=== PATIENT | female | born 1990 | race Caucasian/White ===

== ENCOUNTER 2021-11-28 02:41 | Emergency (ER) | payer OTHER, SELFPAY ==
--- NOTE | 2021-11-28 | ECG_ITS ---
Test Reason : cp Blood Pressure : / mmHG Vent. Rate : 097 BPM Atrial Rate : 097 BPM P-R Int : 136 ms QRS Dur : 082 ms QT Int : 338 ms P-R-T Axes : 040 038 057 degrees QTc Int : 429 ms Normal sinus rhythm Normal ECG When compared with ECG of 13-JUL-2017 10:00, No significant change was found Referred By: Generic ED Physician Electronically Signed By:CHRISTOPHER MONROE MD
--- NOTE | ~2021-11-28 | XR_ITS ---
EXAMINATION: XR CHEST CLINICAL INFORMATION: Chest pain. Left shoulder pain COMPARISON: 07/13/2017 TECHNIQUE: Frontal view of the chest was obtained. FINDINGS: Normal symmetric lung volumes. No parenchymal consolidation. No pleural effusion. No pneumothorax. Cardiomediastinal silhouette and pulmonary vascularity are within normal limits. No acute osseous abnormalities. XR/XR chest 1V IMPRESSION: No acute findings
[2021-11-28 02:53] VITALS: BP 121/69; PULSE 95; RESP 20; TEMP 36.7; O2SAT 98; BMI 29.5
[2021-11-28 03:06] LABS: MANUAL DIFF FLAG NO
[2021-11-28 03:10] LABS: Basophils Absolute Auto 0.1 X10*3/uL (0.0-0.2); Basophils Percent Auto 0.4 % (0-2); Eosinophils Absolute Auto 0.2 X10*3/uL (0.0-0.4); Eosinophils Percent Auto 1.9 % (0-4); Hematocrit 38.8 % (37.0-47.0); Imm Gran Abs Auto 0.03 X10*3/uL (0.00-0.03); Imm Gran Pct Auto 0.2 % (0.0-0.4); Lymphocytes Absolute Auto 2.1 X10*3/uL (1.2-4.9); Lymphocytes Percent Auto 17.4 % (20-40); Mean Corpuscular HGB Conc 33.5 g/dl (31.0-35.0); Mean Corpuscular Hemoglobin 28.5 pg (27.0-33.0); Mean Corpuscular Volume 85.1 fL (80.0-98.0); Mean Platelet Volume 9.5 fL (9.4-12.3); Monocytes Absolute Auto 0.9 X10*3/uL (0.1-1.2); Monocytes Percent Auto 7.4 % (2-11); Neutrophils Percent Auto 72.7 % (45-73); Platelet Count 311 X10*3/uL (160-400); Red Blood Count 4.56 X10*6/uL (4.20-5.50); Red Cell Distribution Width 12.8 % (11.0-16.0); White Blood Count 12.3 X10*3/uL (4.8-10.8)
--- NOTE | 2021-11-28 03:16 | ED.CHESTPAIN ---
HPI - Chest Pain General Chief Complaint: Chest Pain Stated Complaint: chest pain, L arm pain Time Seen by Provider: 11/28/21 03:12 Source: patient Mode of arrival: ambulatory Limitations: no limitations History of Present Illness HPI narrative: Patient comes to the emergency room complaining of 7 hours of left-sided chest pain radiating towards the left arm. Patient states that she was sleeping and she started feeling that her left shoulder was hurting. Patient denies any injuries. At this time, patient states that the chest pain is nearly resolved. No shortness of breath. Patient did not take any medication prior to arrival Related Data Allergies Allergy/AdvReac Type Severity Reaction Status Date / Time No Known Allergies Allergy Unverified 02/26/20 15:53 [No Known Allergies*] Review of Systems Review of Systems: Constitutional : No Weight loss, No Fever, No Chills, No Night Sweats, No Fatigue, No Malaise ENT/Mouth : No Hearing loss, No Ear Pain, No Nasal Congestion, No Sinus Pain, No Hoarseness, No sore throat, No Rhinorrhea, No Swallowing Difficulty Eyes: No Eye Pain, No Swelling, No Redness, No Foreign Body, No Discharge, No Vision Changes Cardiovascular : Complaining of chest pain for 7 hours radiating towards the right shoulder, now self-resolving. No SOB, No Dyspnea on Exertion, No Orthopnea, No Edema, No Palpitations Respiratory : No Cough, No Sputum, No Wheezing, No Smoke Exposure, No Dyspnea Gastrointestinal : No Nausea, No Vomiting, No Diarrhea, No Constipation, No abdominal Pain, No Hematochezia, No Melena Genitourinary : no irregular bleeding, No Dysuria, No Urinary Frequency, No Hematuria, No Urinary Incontinence, No Urgency, No Flank Pain, No Urinary Flow Changes, No Hesitancy Musculoskeletal : No joint pain, No Myalgias, No Joint Swelling Skin : No Skin Lesions, No rash Neuro : No Weakness, No Numbness, No Paresthesias, No Loss of Consciousness, No Dizziness, No Headache Psych : No Anxiety/Panic, No Depression, No SI/HI/AH/VH, No Social Issues, Heme/Lymph: No Bruising, No Bleeding,No Lymphadenopathy Endocrine : No Polyuria, No Polydipsia, No Temperature Intolerance [facility] Social History Social History Alcohol intake: never Patient Tobacco Use Status: Never used Tobacco Use of substances other than those prescribed or required for medical reasons: No Advance Directives: No Advance Directives Information Provided: Yes Patient : No Physical Exam Vital Signs: Vital Signs: Last Vital Signs Temp 98.1 F 11/28/21 02:53 Pulse 95 11/28/21 02:53 Resp 20 11/28/21 02:53 BP 121/69 11/28/21 02:53 Pulse Ox 98 11/28/21 02:53 O2 Del Method 11/28/21 02:53 BMI result Body Mass Index 29.5 Const: Other: Appearance: Alert. Oriented X3. No acute distress. Eyes: Pupils equal, round and reactive to light. ENT: Pharynx normal. Neck: Normal inspection. Neck supple. No lymph nodes noted. No crepitus CVS: Normal heart rate and rhythm. Pulses normal. Normal S1 and S2, reproducible chest pain to palpation in the substernal area Respiratory: No respiratory distress. Breath sounds normal. No Wheezing. No rales Abdomen: Soft and nontender. No rigidity. No distention. Skin: Skin warm and dry. Normal skin color. Normal skin turgor. Extremities: No lower extremity edema. No Lacerations. No Rash Neuro: Oriented X 3. No motor deficit. No sensory deficit. Moving all extremities. No slurred speech. CN 2 through 12 grossly intact Psych: calm, cooperative, normal affect Course Course Course Narrative: Patient's physical exam is normal. EKG and troponin pending Patient's source of pain is likely musculoskeletal. MDM - Chest Pain Lab Data Result diagrams: 11/28/21 03:00 11/28/21 03:00 Labs: Lab Results 11/28/21 11/28/21 11/28/21 Range/Units 03:00 03:00 03:00 WBC 12.3 H (4.8-10.8) X10*3/uL RBC 4.56 (4.20-5.50) X10*6/uL Hgb 13.0 (12.0-16.0) g/dl Hct 38.8 (37.0-47.0) % MCV 85.1 (80.0-98.0) fL MCH 28.5 (27.0-33.0) pg MCHC 33.5 (31.0-35.0) g/dl RDW 12.8 (11.0-16.0) % Plt Count 311 (160-400) X10*3/uL MPV 9.5 (9.4-12.3) fL Immature Gran % (Auto) 0.2 (0.0-0.4) % Neut % (Auto) 72.7 (45-73) % Lymph % (Auto) 17.4 L (20-40) % [place] % (Auto) 7.4 (2-11) % Eos % (Auto) 1.9 (0-4) % Baso % (Auto) 0.4 (0-2) % Lymph # (Auto) 2.1 (1.2-4.9) X10*3/uL [place] # (Auto) 0.9 (0.1-1.2) X10*3/uL Eos # (Auto) 0.2 (0.0-0.4) X10*3/uL Baso # (Auto) 0.1 (0.0-0.2) X10*3/uL Abs Immat Gran (auto) 0.03 (0.00-0.03) X10*3/uL Absolute Neuts (auto) 9.0 H (2.0-8.3) x10*3/uL Absolute Nucleated RBC 0.000 (0.0-0.012) X10*3/uL Nucleated RBC % (auto) 0.0 (0.0-0.2) /100WBC Sodium 135 (135-145) mmol/L Potassium 4.4 (3.3-5.1) mmol/L Chloride 101 (96-108) mmol/L Carbon Dioxide 25 (22-29) mmol/L Anion Gap 13 (12-20) BUN 15 (9-16) mg/dL Creatinine 0.88 (0.5-1.4) mg/dL Estim Creat Clear Calc 81.9 Estimated GFR > 60 Random Glucose 102 (60-115) mg/dL Calcium 10.4 H (8.4-10.2) mg/dL Total Bilirubin 0.4 (0.0-1.0) mg/dL AST 10 (5-31) U/L ALT 15 (0-31) U/L Alkaline Phosphatase 92 (39-117) U/L Troponin I High Sens < 3.5 (<3.5-17.0) ng/L Total Protein 7.1 (6.5-8.0) g/dL Albumin 4.1 (3.5-5.0) g/dL Imaging Data Chest x-ray: Radiologist's impression: Normal symmetric lung volumes. No parenchymal consolidation. No pleural effusion. No pneumothorax.? Cardiomediastinal silhouette and pulmonary vascularity are within normal limits. No acute osseous abnormalities. XR/XR chest 1V IMPRESSION: No acute findings ? ECG Data ECG #1: Attestation: I personally reviewed and interpreted this ECG as follows: (Sinus rhythm, heart rate 97, no ST segment depression or elevation, no T-wave inversion, QTC 429) Discharge Plan Discharge Clinical Impression: Atypical chest pain Patient Disposition: Home, Self-Care Instructions: Chest Pain (ED) Additional Instructions: Please follow-up with your primary care physician tomorrow. If you have any worsening or new symptoms, please return to the emergency room or call 911
[2021-11-28] MEDS: Aspirin Enteric Coated 325 MG TABLET.DR PO (03:21)
[2021-11-28 03:25] LABS: Alanine Aminotransferase 15 U/L (0-31); Albumin Level 4.1 g/dL (3.5-5.0); Alkaline Phosphatase 92 U/L (39-117); Anion Gap 13 (12-20); Aspartate Amino Transferase 10 U/L (5-31); Bilirubin Total 0.4 mg/dL (0.0-1.0); Blood Urea Nitrogen 15 mg/dL (9-16); Calcium 10.4 mg/dL (8.4-10.2); Carbon Dioxide 25 mmol/L (22-29); Chloride 101 mmol/L (96-108); Creatinine Clr Calc Pharmacy 81.9; Estimated Glomerular Filt Rate > 60; Glucose Random 102 mg/dL (60-115); Potassium 4.4 mmol/L (3.3-5.1); Sodium 135 mmol/L (135-145); Total Protein 7.1 g/dL (6.5-8.0); Troponin-I High Sensitivity < 3.5 ng/L (<3.5-17.0)
--- NOTE | 2021-11-28 04:02 | PC.NURSE ---
pt states her shoulder pain has improved to a 6/10 and her chest wall pain is only on deep breathing. skin pink warm and dry, pt resting comfortably.
[2021-11-28 04:12] VITALS: BP 112/61; PULSE 90; RESP 18; O2SAT 97
== END 2021-11-28 04:15 | disposition home or self-care (01) ==
PROVIDERS: Emergency Provider Emergency Medicine
DX: R07.89 Other chest pain (principal); M79.602 Pain in left arm; Z79.899 Other long term (current) drug therapy
CPT/HCPCS: 36415; 71045; 80053; 84484; 85025; 93005; 99284; 99285

== ENCOUNTER 2025-03-09 13:47 | Observation (INO) | payer SELFPAY ==
[2025-03-09 13:55] VITALS: BP 130/80; PULSE 110; O2SAT 99
[2025-03-09 14:01] VITALS: BP 145/73; PULSE 113; RESP 18; TEMP 36.9; O2SAT 98; BMI 25.6
[2025-03-09 14:08] VITALS: BP 145/73; PULSE 113; RESP 18; TEMP 36.9; O2SAT 98
--- NOTE | 2025-03-09 14:08 | ECG_ITS ---
Test Reason : techycardia Blood Pressure : */* mmHG Vent. Rate : 115 BPM Atrial Rate : 115 BPM P-R Int : 144 ms QRS Dur : 128 ms QT Int : 388 ms P-R-T Axes : * 59 -74 degrees QTcB Int : 536 ms Artifact in tracing Sinus tachycardia Due to artifact cannot assess When compared with ECG of 28-Nov-2021 02:42, due to artifact, cannot compare Referred By: Generic ED Physician Electronically Signed By: EDITH GONZALEZ
--- NOTE | 2025-03-09 14:11 | PC.NURSE ---
34F presents to ED with recent use of excess adderall and thc. Pt sts treating self psychosis, took 1400mg adderall in last 3 days and 400mg THC edibles each day for last 3 days. Pt sts she's abused her meds in the past and wants help. Pt denies any pain or discomfort, does have some nausea. Pt tachy upon arrival, ecg completed. RR even and unlabored, denies CP or SOB. Pt is anxious, A+OX4. Pt ambulates without difficulties.
--- NOTE | 2025-03-09 14:20 | PC.NURSE ---
pt denies SI/HI, ticket dispenser changer for safety, belongings being checked by security and secured.
[2025-03-09] MEDS: Lactated Ringers 1,000 ML 999 ML IV (15:05)
[2025-03-09] MEDS: diazePAM 10 MG/2 ML CARTRIDGE 5 MG IVPUSH ×2 (15:05→20:35)
--- NOTE | 2025-03-09 15:15 | PC.NURSE ---
pt anxious, just medicated. Family at bedside along with sitter.
[2025-03-09 15:30] LABS: MANUAL DIFF FLAG NO
[2025-03-09 15:30] LABS: Appearance Urine Cloudy; Glucose Urine UA Negative (Negative); PH 5.0 (5.0-9.0); Specific Gravity - Urine 1.025 (1.005-1.025); UMIC TRIGGER UACC YES
[2025-03-09 15:39] LABS: Hematocrit 34.3 % (37.0-47.0); Hemoglobin 12.0 g/dl (12.0-16.0); Imm Gran Abs Auto 0.04 X10*3/uL (0.00-0.03); Imm Gran Pct Auto 0.3 % (0.0-0.4); Lymphocytes Absolute Auto 2.9 X10*3/uL (1.2-4.9); Mean Corpuscular HGB Conc 35.0 g/dl (31.0-35.0); Mean Corpuscular Hemoglobin 29.2 pg (27.0-33.0); Mean Corpuscular Volume 83.5 fL (80.0-98.0); NRBC Abs Auto 0.000 X10*3/uL (0.0-0.012); NRBC Pct Auto 0.0 /100WBC (0.0-0.2); Platelet Count 342 X10*3/uL (160-400); Red Blood Count 4.11 X10*6/uL (4.20-5.50); White Blood Count 13.2 X10*3/uL (4.8-10.8)
[2025-03-09 15:42] LABS: Cannabinoid Screen Urine POSITIVE (Not Detect)
[2025-03-09 15:55] LABS: Alanine Aminotransferase 15 U/L (0-31); Albumin Level 4.4 g/dL (3.5-5.0); Alkaline Phosphatase 53 U/L (39-117); Anion Gap 11 (12-20); Aspartate Amino Transferase 24 U/L (5-31); Blood Urea Nitrogen 13 mg/dL (9-16); Calcium 9.7 mg/dL (8.4-10.2); Carbon Dioxide 22 mmol/L (22-29); Chloride 113 mmol/L (96-108); Creatinine Clr Calc Pharmacy 87.2; Estimated Glomerular Filt Rate > 60; Magnesium 1.7 mg/dL (1.6-2.6); Potassium 3.9 mmol/L (3.3-5.1); Sodium 142 mmol/L (135-145); Total Protein 6.6 g/dL (6.5-8.0)
--- NOTE | 2025-03-09 15:57 | ED.PSYCH ---
HPI - Psych General Chief Complaint: Psychiatric Symptoms Stated Complaint: Too much med, ativan, cbd Time Seen by Provider: 03/09/25 14:18 Source: patient, family and old records reviewed Mode of arrival: ambulatory Limitations: no limitations History of Present Illness ED Provider: ESTELLA HPI Narrative: 34 yo female with PMH of anxiety/depression who also has hx of stimulant abuse including trying meth in the past and using crack cocaine back in 2021. She now has a cycle of abusing her adderall 10mg and 20mg she gets a 90 day supply and uses it in one week. She then states she sleeps for 3 weeks after. She has no SI/HI but states I am done I need help. She is 6 days in of her typical one week binge and took about 500mg today. She has no CP/SOB. She states she likes to smoke about 400mg of THC a day as well to not be here. She has not gone to detox before. She is with her mom and boyfriend. complaint: anxiety Onset (ago): year(s) Duration: intermittent History of same: Yes Relieving factors: none Exacerbating factors: drug use Context: recent drug abuse and significant life stressor Associated psychiatric symptoms: depression and racing thoughts Associated symptoms: nausea and insomnia Treatments prior to arrival: none Related Data Allergies Allergy/AdvReac Type Severity Reaction Status Date / Time No Known Allergies (No Known Allergy Verified 03/09/25 14:07 Allergies*) Review of Systems Review of Systems: Constitutional : No Fever, No Chills, No Fatigue ENT/Mouth : No sore throat, No Rhinorrhea Eyes: No Eye Pain, No Swelling, No Redness Cardiovascular : No Chest Pain, No SOB Respiratory : No Cough, No Sputum Gastrointestinal : No Nausea, No Vomiting, No Diarrhea, No abdominal Pain Skin : No Skin Lesions, No rash Neuro : No Weakness, No Numbness, No Dizziness, no Headache Psych: pos anxiety, pos depression, no SI/HI. All other systems reviewed and are negative PMFSH Past Medical History Attestation statement: The following information was validated with the patient. Source: old records reviewed Medical History Stimulant abuse Social History Social History Alcohol intake: current Patient Tobacco Use Status: Never used Tobacco Smoked in Last 30 Days: No Use of substances other than those prescribed or required for medical reasons: No Advance Directives: No Advance Directives Information Provided: Yes Do you have a plan to hurt others: No Plan Patient : No Physical Exam Vital Signs: Vital Signs: Last Vital Signs Temp 98.4 F 03/09/25 14:08 Pulse 110 H 03/09/25 16:15 Resp 20 03/09/25 16:15 BP 128/80 03/09/25 16:15 Pulse Ox 98 03/09/25 16:15 O2 Del Method Room Air 03/09/25 16:15 BMI result Body Mass Index 25.6 Appearance: Alert. Oriented X3. No acute distress. Eyes: Pupils equal, round and reactive to light. 5mm ENT: Pharynx normal. Neck: Normal inspection. Neck supple. CVS: tachycardic heart rate and rhythm. Pulses normal. Respiratory: No respiratory distress. Breath sounds normal. Abdomen: Soft and nontender. Skin: Skin warm and dry. Normal skin color. Extremities: No lower extremity edema. Neuro: Oriented X 3. No motor deficit. No sensory deficit. CN2-12 intact no hyperreflexia or tremors, no clonus Medications Administered Discontinued Medications Generic Name Dose Route Start Last Admin Trade Name Freq PRN Reason Stop Dose Admin Diazepam 5 mg 03/09/25 14:54 03/09/25 15:05 Diazepam 10 Mg/2 Ml Cartridge IVPUSH 03/09/25 14:55 5 mg STAT STA Administration Lactated Ringer's 1,000 mls @ 999 mls/hr 03/09/25 14:54 03/09/25 15:05 Lr IV 03/09/25 15:54 999 mls/hr .Q1H1M ONE Administration Medical Decision Making Medical Decision Making MDM Narrative: 34 yo female with PMH of anxiety/depression who also has hx of longstanding stimulant abuse she is here anxious, nervous with HTN and tachycardia - she took 500mg IR today. At this time will obtain labs, EKG, place on tele give IVF and start on PRN benzos. She has no tremors, psychosis, clonus. Anticipate admission after discussion with poison control. Differential Diagnosis Differential Diagnoses: The differential diagnosis associated with the presentation includes ingestion, stimulant abuse Admission/Observation Consideration of admission/observation: Escalation of care including admission/observation considered per tox monitor on tele and repeat EKGs for 24 hours bicarb if QRS widens Consult Healthcare Provider Management of the patient was discussed with: Hospitalist (will admit) and Principal Trainer poison control: repeating ECG to check QRS after fluids, repeating ECG q2h and keeping overnight for observation. They recommend bicarb if QRS is still wide. Lab Data [facility] Lab Attestation statement: I reviewed the patient's lab results. 03/09/25 15:27 03/09/25 15:27 Labs: Lab Results 03/09/25 03/09/25 Range/Units 15:12 15:27 WBC 13.2 H (4.8-10.8) X10*3/uL RBC 4.11 L (4.20-5.50) X10*6/uL Hgb 12.0 (12.0-16.0) g/dl Hct 34.3 L (37.0-47.0) % MCV 83.5 (80.0-98.0) fL MCH 29.2 (27.0-33.0) pg MCHC 35.0 (31.0-35.0) g/dl RDW 12.7 (11.0-16.0) % Plt Count 342 (160-400) X10*3/uL MPV 9.9 (9.4-12.3) fL Immature Gran % (Auto) 0.3 (0.0-0.4) % Neut % (Auto) 68.3 (45-73) % Lymph % (Auto) 22.1 (20-40) % [place] % (Auto) 7.7 (2-11) % Eos % (Auto) 1.2 (0-4) % Baso % (Auto) 0.4 (0-2) % Lymph # (Auto) 2.9 (1.2-4.9) X10*3/uL [place] # (Auto) 1.0 (0.1-1.2) X10*3/uL Eos # (Auto) 0.2 (0.0-0.4) X10*3/uL Baso # (Auto) 0.1 (0.0-0.2) X10*3/uL Abs Immat Gran (auto) 0.04 H (0.00-0.03) X10*3/uL Absolute Neuts (auto) 9.0 H (2.0-8.3) x10*3/uL Absolute Nucleated RBC 0.000 (0.0-0.012) X10*3/uL Nucleated RBC % (auto) 0.0 (0.0-0.2) /100WBC Sodium 142 (135-145) mmol/L Potassium 3.9 (3.3-5.1) mmol/L Chloride 113 H (96-108) mmol/L Carbon Dioxide 22 (22-29) mmol/L Anion Gap 11 L (12-20) BUN 13 (9-16) mg/dL Creatinine 0.75 (0.5-1.4) mg/dL Estim Creat Clear Calc 87.2 Estimated GFR > 60 Random Glucose 96 (60-115) mg/dL Calcium 9.7 D (8.4-10.2) mg/dL Magnesium 1.7 (1.6-2.6) mg/dL Total Bilirubin 0.4 (0.0-1.0) mg/dL Direct Bilirubin 0.2 (0.0-0.5) mg/dL AST 24 (5-31) U/L ALT 15 (0-31) U/L Alkaline Phosphatase 53 (39-117) U/L Total Creatine Kinase 237 H (26-140) U/L Total Protein 6.6 (6.5-8.0) g/dL Albumin 4.4 (3.5-5.0) g/dL TSH 0.85 (0.32-4.0) uIU/mL Beta HCG, Quant < 2 mIU/mL Urine Color Dark Yellow Urine Appearance Cloudy Urine pH 5.0 (5.0-9.0) Ur Specific [place] 1.025 (1.005-1.025) Urine Protein Trace (Neg-Trace) mg/dL Urine Glucose (UA) Negative (Negative) mg/dL Urine Ketones 15 (Negative) mg/dL Urine Blood Large (3+) H (Negative) Urine Nitrite Negative (Negative) Ur Leukocyte Esterase Trace H (Negative) Urine RBC 3-5 H (0-2) /HPF Urine WBC 0-5 (0-5) /HPF Ur Squamous Epith Cells 6-10 (0-2) /HPF Urine Bacteria 3+ (None Seen) Hyaline Casts 0-2 (0-2) /LPF Urine Opiates Screen Not Detected (Not Detect) Ur Buprenorphine Scrn Not Detected (Not Detect) ng/mL Ur Oxycodone Screen Not Detected (Not Detect) ng/mL Urine Methadone Screen Not Detected (Not Detect) ng/mL Urine Fentanyl Screen Not Detected (Not Detect) Ur Barbiturates Screen Not Detected (Not Detect) Ur Phencyclidine Scrn Not Detected (Not Detect) Ur Amphetamines Screen POSITIVE H (Not Detect) U Benzodiazepines Scrn Not Detected (Not Detect) Urine Cocaine Screen Not Detected (Not Detect) U Marijuana (THC) Screen POSITIVE H (Not Detect) Ethyl Alcohol < 10 mg/dL Independent Interpretation I performed an independent interpretation of an: EKG Interpretation: Rate: 115 Rhythm: sinus tachycardia [place]: normal Normal P waves. Normal GUANACO. Normal QRS complex. ST T wave : artifact but no CALDERON qTC: 492 prior studies: no prior The study has been interpreted contemporaneously by me. EKG #2 Rate: 102 Rhythm: sinus tach [place]: normal Normal P waves. Normal [place]. Normal QRS complex. ST T wave : inverted t wave V1, no CALDERON qTC: 474 prior studies: no change The study has been interpreted contemporaneously by me. . Independent Historian Clinical information obtained from an independent historian. History obtained from or confirmed by: Spouse and Parent External Record Review External record reviewed: Outpatient record Discharge Plan Discharge Clinical Impression: Stimulant abuse Patient Disposition: Admitted As Inpatient Interventions: Mitchell-Suicide Risk Severity Scale Last Done: 03/09/25 14:08 Print Language: German
--- NOTE | 2025-03-09 15:58 | PC.NURSE ---
Spoke to poison control, they recommend repeating ECG to check QRS after fluids, repeating ECG q2h and keeping overnight for observation. They recommend bicarb if QRS is still wide. notified.
--- NOTE | 2025-03-09 16:05 | ECG_ITS ---
Test Reason : medical clearance Blood Pressure : */* mmHG Vent. Rate : 102 BPM Atrial Rate : 102 BPM P-R Int : 140 ms QRS Dur : 76 ms QT Int : 364 ms P-R-T Axes : 62 52 59 degrees QTcB Int : 474 ms Sinus tachycardia Otherwise normal ECG When compared with ECG of 09-Mar-2025 14:08, No significant changes seen Referred By: Dionna Robledo Electronically Signed By: EDITH GONZALEZ
[2025-03-09 16:15] VITALS: BP 128/80; PULSE 110; RESP 20; O2SAT 98
--- OUTSIDE RECORDS SUMMARY | 2025-03-09 16:32 | XMS_ITS | Clinical Summary ---
Author Organization Formerly [facility] Address [address] [employer] [employer] [address] [address] Phone Care Team Providers Care Cellophaner Name Role Phone Estella Andrea RNprocessor grain Provider [phone] Allergies No known active allergies Active Problems Problem Noted Date Diagnosed Date ADD (attention deficit disorder) 03/07/2020 Anxiety 03/07/2020 Gastroesophageal reflux disease 03/07/2020 Tobacco use 03/07/2020 Immunizations Immunization Administration Dates Next Due Dtap, 5 Pertussis Antigens 01/26/1994,,01/28/1990,1989,07/03/1989 HPV,quadrivalent 02/16/2012,10/12/2011, 2 Hepatitis B 05/14/2000,03/17/1998,02/12/1998 Hib,PRP-T 09/24/1990 Influenza Quadrivalent w/ Preservative IM 03/04/2020,04/09/2018,07/25/2017 MMR 05/14/2000,09/24/1990 Polio - OPV 01/26/1994, 1,08/27/1989,1989 Td (adult),2 Lf Tetanus Toxo id, PF, Adsorbed 05/14/2000 Family History Medical History Relation Comments Alcohol abuse Father Alcohol abuse Mother Thyroid nodules Mother Leukemia Paternal Grandfather Relation Status Comments Father Mother Paternal Grandfather Social History Tobacco Use Types Packs/Day Years Used Date Smoking Tobacco: Every Day Cigarettes Smokeless Tobacco: Never Alcohol Use Standard Drinks/Week Comments Not Currently 0 (1 standard drink = 0.6 oz pur e alcohol) Education Answer Date Recorded Are you interested in more education? Not on herbert e 10/06/2022 Are you concerned about learning? Not on file 10/06/2022 No 10/06/2022 No 10/06/2022 Digital Access Answer Date Recorded No 11/04/2022 No 11/04/2022 No 11/04/2022 Reliable internet access at home? Not on file 11/04/2022 Device with a working camera? Not on file Comments Unknown Sex and Gender Information Value Date Recorded Sex Assigned at Not on file Legal Sex Female 1:32 PM EDT Gender Identity Not on file Sexual Orientation Not on file Last Filed Vital Signs Vital Sign Reading Time Taken Comments Blood Pressure 116/70 03/04/2020 3:10 PM EDT Pulse 108 03/04/2020 3:10 PM EDT Temperature 35.2 C (95.3 F) 03/04/2020 3:10 PM EDT Respiratory Rate - - Oxygen Saturation 99% 03/04/2020 3:10 PM EDT Inhaled Oxygen Concentration - - Weight 83 kg (183 lb 0.2 oz) 03/04/2020 3:10 PM EDT Height 154.9 cm (5' 1 ) 03/04/2020 3:10 PM EDT Body Mass Index 34.58 03/04/2020 3:10 PM EDT Plan of Treatment Health Maintenance Due Date Last Done Comments SMOKING Hx and SMOKELESS TOBACCO SCREENING 2001 HEPATITIS C SCREENING 2006 HIV ONE-TIME SCREENING (18-6 5 YEARS) 2006 PNEUMOCOCCAL VACCINES (0-49 years) (1 of 2 - PCV) 11/25/2007 PAP SMEAR 2009 Adult Td,Tdap Booster 05/14/2010 05/14/2000 DEPRESSION SCREENING 03/04/2021 03/04/2020, 03/04/2020 INFLUENZA VACCINE (#1) 2025 , 04/09/2018, 07/25/2017 COVID-19 VACCINE (2 - 2024-2 6 season) 2025 09/28/2020 HIB VACCINES Completed 09/24/1990 HEPATITIS A VACCINES Aged Out No long er eligible based on patient's age to complete this topic MENINGOCOCCAL VACCINES (ACWY) Aged Out No longer eligible based on patient's age to complete this topic MENINGOCOCCAL VACCINES (B) Aged Out N o longer eligible based on patient's age to complete this topic Medical Devices Not on file Insurance WELLSENSE NON NSPG PCP SILVER CLARITY CONNECTORCARE WELLSENSE NON NSPG PCP SILVER CLARITY CONNECTORCARE WELLSENSE NON NSPG PCP SILVER CLARITY CONNECTORCARE WELLSENSE NON NSPG PCP SILVER CLARITY CONNECTORCARE WELLSENSE NON NSPG PCP SILVER CLARITY CONNECTORCARE WELLSENSE NON NSPG PCP SILVER CLARITY CONNECTORCARE WELLSENSE NON NSPG PCP SILVER CLARITY CONNECTORCARE WELLSENSE NON NSPG PCP SILVER CLARITY CONNECTORCARE WELLSENSE NON NSPG PCP SILVER CLARITY CONNECTORCARE [place] [phone] Care Teams Cellophaner Relationship Specialty Start Date End Date Estella Andrea RN [address] [place] [id number] [email or web address] PCP - General Internal Medicine 04/12/20 Additional Source Comments The information contained in this document represents components of the legal health record. It is not the complete legal health record.Formerly [facility]
--- OUTSIDE RECORDS SUMMARY | 2025-03-09 16:32 | XMS_ITS | Clinical Summary ---
Author Organization [facility] Address [address] [place] [address] Phone Care Team Providers Care Child Neurologist Name Role Phone Edwige Lao MD Primary Care Provider [phone] Immunizations Immunization Administration Dates Next Due DTaP 5 01/26/1994, 1,01/28/1990,1989,07/03/1989 Hep B, ped/adol 05/14/2000,03/17/1998,02/12/1998 Hib (PRP-T) 09/24/1990 MMR 05/14/2000,09/24/1990 OPV 01/26/1994, 1,08/27/1989,1989 Td (adult) (MBL), 2 Lf tetan us toxoid, PF, adsorbed 05/14/2000 Family History Relation Name Status Comments Father Alive Father: Alive a nd well Mother Alive Mother: Alive a nd well Social History Tobacco Use Types Packs/Day Years Used Date Smoking Tobacco: Never Assessed Comments Unknown Sex and Gender Information Value Date Recorded Sex Assigned at Not on file Legal Sex Female 4:29 PM EDT Gender Identity Not on file Sexual Orientation Not on file Plan of Treatment Health Maintenance Due Date Last Done Comments DTaP,Tdap,and Td Vaccines (6 - Tdap) 05/15/2000 05/14/2000, 01/26/1994, 09/24/1990, Additional history exists Varicella Vaccines (1 of 2 - 13+ 2-dose series) 2001 HPV Vaccines (1 - 3-dose SCDM series) 11/25/2015 Influenza Vaccines (#1) 2025 COVID-19 Vaccine ( season) 2025 HIB Vaccines Completed 09/24/1990 IPV Vaccines Completed 01/26/1994, 09/09, 08/27/1989, Additional history exists Hepatitis B Vaccines Completed 05/14/2000, 03/17/1998, 02/12/1998 MMR Vaccines Completed 05/14/2000, 09/24/1990 Hepatitis A Vaccines Aged Out No long er eligible based on patient's age to complete this topic Men B Vaccine Aged Out No longer elig ible based on patient's age to complete this topic Meningococcal Vaccine Aged Out No rosio lance eligible based on patient's age to complete this topic Pneumococcal Vaccine Aged Out No long er eligible based on patient's age to complete this topic Care Teams Child Neurologist Relationship Specialty Start Date End Date Edwige Lao MD [address] [place] [address] [place] [id number] PCP - General 01/19/17
--- NOTE | 2025-03-09 16:43 | P.HPHOSP_ITS ---
History of Present Illness Date of Service: 03/09/25 Chief Complaint: adderal OD 34F PMH mood disorder, polysubstance abuse including adderal, meth, crack coacaine, presented with adderal overdose. Patient states she has been having trouble coping and has previously abused Adderall in the past. For the past week she has been taking approximately 400 mg daily and on day of presentation took 1200 mg. Currently feeling stressed and anxious and some brain fog. Denies chest pain, shortness breath, fever, chills. EKG with sinus tachycardia of 102, QRS 76, QTC 474. Review of Systems 2 Review of Systems: Yes all other systems are reviewed and are negative [facility] Medical History Stimulant abuse Social History Alcohol intake: current Patient Tobacco Use Status: Never used Tobacco Smoked in Last 30 Days: No Use of substances other than those prescribed or required for medical reasons: No Advance Directives: No Advance Directives Information Provided: Yes Do you have a plan to hurt others: No Plan Patient : No Meds Allergies Allergy/AdvReac Type Severity Reaction Status Date / Time No Known Allergies (No Known Allergy Verified 03/09/25 14:07 Allergies*) Active Medications: Current Medications Acetaminophen (Acetaminophen 325 Mg Tablet) 650 mg PO Q6H PRN PRN Reason: Pain, Mild 1-3,fever,headache Calcium Carbonate (Calcium Carbonate 750 Mg Tab.Chew) 750 mg PO Q4H PRN PRN Reason: Heartburn Enoxaparin Sodium (Enoxaparin Sodium 40 Mg/0.4 Ml Syringe) 40 mg SUBCUT Q24H [facility] Magnesium Hydroxide (Milk Of Magnesia 30 Ml Oral.Susp) 30 ml PO DAILY PRN PRN Reason: Constipation Melatonin (Melatonin 3 Mg Tablet) 6 mg PO BEDTIME PRN PRN Reason: Insomnia Sodium Chloride (0.9 % Sodium Chloride Flush 3 Ml Syringe) 3 ml IVFLUSH QSHIFT JULIO Physical Exam 2 Vital Signs and Narrative: Vital Signs: Last Vital Signs Temp 98.4 F 03/09/25 14:08 Pulse 110 H 03/09/25 16:15 Resp 20 03/09/25 16:15 BP 128/80 03/09/25 16:15 Pulse Ox 98 03/09/25 16:15 O2 Del Method Room Air 03/09/25 16:15 BMI result Body Mass Index 25.6 General: AO X 3, restless appearing Resp: CTA bilateral, no accessory muscles used CVS: S1,S2,tachy GI: soft, non tender, non distended Neuro: motor grossly intact, alert Psych: anxious affect, appropriate insight Results Labs 03/09/25 15:27 03/09/25 15:27 Labs: Laboratory Results - last 24 hr 03/09/25 03/09/25 15:12 15:27 MCV 83.5 MCH 29.2 MCHC 35.0 RDW 12.7 Plt Count 342 MPV 9.9 Immature Gran % (Auto) 0.3 Neut % (Auto) 68.3 Lymph % (Auto) 22.1 [place] % (Auto) 7.7 Eos % (Auto) 1.2 Baso % (Auto) 0.4 Lymph # (Auto) 2.9 [place] # (Auto) 1.0 Eos # (Auto) 0.2 Baso # (Auto) 0.1 Abs Immat Gran (auto) 0.04 H Absolute Neuts (auto) 9.0 H Absolute Nucleated RBC 0.000 Nucleated RBC % (auto) 0.0 Anion Gap 11 L Estim Creat Clear Calc 87.2 Estimated GFR > 60 Random Glucose 96 Calcium 9.7 D Magnesium 1.7 Total Bilirubin 0.4 Direct Bilirubin 0.2 AST 24 ALT 15 Alkaline Phosphatase 53 Total Creatine Kinase 237 H Total Protein 6.6 Albumin 4.4 TSH 0.85 Beta HCG, Quant < 2 Urine Color Dark Yellow Urine Appearance Cloudy Urine pH 5.0 Ur Specific [place] 1.025 Urine Protein Trace Urine Glucose (UA) Negative Urine Ketones 15 Urine Blood Large (3+) H Urine Nitrite Negative Ur Leukocyte Esterase Trace H Urine RBC 3-5 H Urine WBC 0-5 Ur Squamous Epith Cells 6-10 Urine Bacteria 3+ Hyaline Casts 0-2 Urine Opiates Screen Not Detected Ur Buprenorphine Scrn Not Detected Ur Oxycodone Screen Not Detected Urine Methadone Screen Not Detected Urine Fentanyl Screen Not Detected Ur Barbiturates Screen Not Detected Ur Phencyclidine Scrn Not Detected Ur Amphetamines Screen POSITIVE H U Benzodiazepines Scrn Not Detected Urine Cocaine Screen Not Detected U Marijuana (THC) Screen POSITIVE H Ethyl Alcohol < 10 Assessment and Plan (1) Stimulant abuse: Status: Acute Plan 34F PMH mood disorder, polysubstance abuse including adderal, meth, crack coacaine, presented with adderal overdose mood disorder with Adderall intoxication Discussed with poison control, monitor for 24 hours on tele with EKG q.2 hours Once medically cleared will need care team eval DVT prophylaxis with Lovenox Full code Quality Stroke Does the patient have a stroke diagnosis?: No VTE Prior VTE?: No VTE Risk Level:: Medical - moderate - high VTE Device Contraindication: Treatment Not Indicated VTE Drug Contraindication: N/A - Med Ordered
[2025-03-09 18:03] VITALS: BP 120/63; PULSE 114; RESP 21; TEMP 36.8; O2SAT 99
--- NOTE | 2025-03-09 18:23 | PHA.MEDREC ---
Addendum entered by Tk Mak PharmD 03/09/25 18:27: reviewed Original Note: Pharmacy Consult ? Medication Reconciliation Pharmacy has completed the medication reconciliation. patient was able to name all of her medications. Patient had her medications today.
--- NOTE | 2025-03-09 19:26 | PC.NURSE ---
assumed care of pt, mother and 1:1 sitter at bedside. Pt dinner at bedside, tech drawing labs. Pt alert and oriented, respirations even and unlabored.
[2025-03-09 19:49] LABS: Acetaminophen LAB < 3 mcg/mL (<30); Salicylate < 5.0 mg/dL (15-30)
[2025-03-09 20:17] VITALS: BP 111/56; PULSE 64; RESP 20; TEMP 36.7; O2SAT 99
--- NOTE | 2025-03-09 20:39 | PC.NURSE ---
pt reports increased anxiety, pt medicated per MAR. sitter sitting inside the room with pt, lights dimmed curtain closed to attempt to decrease stimuli for pt.
--- NOTE | 2025-03-09 20:43 | PC.NURSE ---
poison control called to get acetaminophen value and current HR. information relayed; Acetaminophen value of >3, HR between 82-90
--- NOTE | 2025-03-09 22:40 | PC.NURSE ---
pt given warm blanket, sitter at bedside.
--- NOTE | 2025-03-10 01:02 | PC.NURSE ---
pt reports increasing anxiety and sweats, feels she is having mild w/d symptoms, admitting provider advised via [place], awaiting new orders
[2025-03-10] MEDS: 0.9 % Sodium Chloride Flush 3 ML SYRINGE IVFLUSH ×3 (01:08→15:54)
--- NOTE | 2025-03-10 01:22 | PC.NURSE ---
per provider request, confirmed with pt that no alcohol or other substances were used recently. Pt denies other substances and states she never drinks alcohol.
[2025-03-10] MEDS: diazePAM 10 MG/2 ML CARTRIDGE 5 MG IVPUSH (01:26)
--- NOTE | 2025-03-10 01:29 | PC.NURSE ---
pt medicated per MAR.
[2025-03-10 06:42] VITALS: BP 113/63; PULSE 96; RESP 20; TEMP 36.8; O2SAT 100
[2025-03-10 07:31] LABS: Hematocrit 35.9 % (37.0-47.0); Hemoglobin 12.3 g/dl (12.0-16.0); Mean Corpuscular HGB Conc 34.3 g/dl (31.0-35.0); Mean Corpuscular Hemoglobin 29.1 pg (27.0-33.0); Mean Corpuscular Volume 85.1 fL (80.0-98.0); NRBC Abs Auto 0.000 X10*3/uL (0.0-0.012); NRBC Pct Auto 0.0 /100WBC (0.0-0.2); Platelet Count 280 X10*3/uL (160-400); Red Blood Count 4.22 X10*6/uL (4.20-5.50); White Blood Count 7.1 X10*3/uL (4.8-10.8)
[2025-03-10 07:50] LABS: Anion Gap 11 (12-20); Blood Urea Nitrogen 11 mg/dL (9-16); Calcium 9.0 mg/dL (8.4-10.2); Carbon Dioxide 23 mmol/L (22-29); Chloride 111 mmol/L (96-108); Creatinine Clr Calc Pharmacy 86.0; Estimated Glomerular Filt Rate > 60; Magnesium 1.8 mg/dL (1.6-2.6); Potassium 3.8 mmol/L (3.3-5.1); Sodium 141 mmol/L (135-145)
--- NOTE | 2025-03-10 07:55 | PC.NURSE ---
patient currently sleeping, rr equal/non labored, library monitor nsr, 1:1 sitter at bedside, fall precautions intact, call elise within reach, plan of care ongoing
--- NOTE | 2025-03-10 08:23 | HO.PM.IMPN ---
Subjective Subjective Date of Service: 03/10/25 Interval History: no copmlaints Physical Exam Exam: Exam: General: AO X 3, no acute distress Resp: CTA bilateral, no accessory muscles used CVS: S1,S2,RRR GI: soft, non tender, non distended Neuro: motor grossly intact, alert Psych: appropriate affect, appropriate insight Vital Signs: Vital Signs: Last Vital Signs Temp 98.3 F 03/10/25 06:42 Pulse 96 03/10/25 06:42 Resp 20 03/10/25 06:42 BP 113/63 03/10/25 06:42 Pulse Ox 100 03/10/25 06:42 O2 Del Method Room Air 03/10/25 06:42 BMI result Body Mass Index 25.6 Objective Data Active Medications Acetaminophen (Acetaminophen 325 Mg Tablet) 650 mg PO Q6H PRN PRN Reason: Pain, Mild 1-3,fever,headache Calcium Carbonate (Calcium Carbonate 750 Mg Tab.Chew) 750 mg PO Q4H PRN PRN Reason: Heartburn Diazepam (Diazepam 10 Mg/2 Ml Cartridge) 5 mg IVPUSH Q4H PRN PRN Reason: Anxiety Last Admin: 03/10/25 01:26 Dose: 5 mg Documented By: JAHAIRA Enoxaparin Sodium (Enoxaparin Sodium 40 Mg/0.4 Ml Syringe) 40 mg SUBCUT Q24H [facility] Last Admin: 03/10/25 08:11 Dose: Not Given Documented By: MINDI Non-Admin Reason: Patient Refused Magnesium Hydroxide (Milk Of Magnesia 30 Ml Oral.Susp) 30 ml PO DAILY PRN PRN Reason: Constipation Melatonin (Melatonin 3 Mg Tablet) 6 mg PO BEDTIME PRN PRN Reason: Insomnia Sodium Chloride (0.9 % Sodium Chloride Flush 3 Ml Syringe) 3 ml IVFLUSH QSHIFT [facility] Last Admin: 03/10/25 08:10 Dose: 3 ml Documented By: MINDI Labs 03/10/25 07:22 03/10/25 07:22 Labs: Laboratory Results - last 24 hr 03/09/25 03/09/25 03/09/25 15:12 15:27 19:24 MCV 83.5 MCH 29.2 MCHC 35.0 RDW 12.7 Plt Count 342 MPV 9.9 Immature Gran % (Auto) 0.3 Neut % (Auto) 68.3 Lymph % (Auto) 22.1 [place] % (Auto) 7.7 Eos % (Auto) 1.2 Baso % (Auto) 0.4 Lymph # (Auto) 2.9 [place] # (Auto) 1.0 Eos # (Auto) 0.2 Baso # (Auto) 0.1 Abs Immat Gran (auto) 0.04 H Absolute Neuts (auto) 9.0 H Absolute Nucleated RBC 0.000 Nucleated RBC % (auto) 0.0 Anion Gap 11 L Estim Creat Clear Calc 87.2 Estimated GFR > 60 Random Glucose 96 Calcium 9.7 D Magnesium 1.7 Total Bilirubin 0.4 Direct Bilirubin 0.2 AST 24 ALT 15 Alkaline Phosphatase 53 Total Creatine Kinase 237 H Total Protein 6.6 Albumin 4.4 TSH 0.85 Beta HCG, Quant < 2 Urine Color Dark Yellow Urine Appearance Cloudy Urine pH 5.0 Ur Specific [place] 1.025 Urine Protein Trace Urine Glucose (UA) Negative Urine Ketones 15 Urine Blood Large (3+) H Urine Nitrite Negative Ur Leukocyte Esterase Trace H Urine RBC 3-5 H Urine WBC 0-5 Ur Squamous Epith Cells 6-10 Urine Bacteria 3+ Hyaline Casts 0-2 Salicylates < 5.0 L Urine Opiates Screen Not Detected Ur Buprenorphine Scrn Not Detected Ur Oxycodone Screen Not Detected Urine Methadone Screen Not Detected Urine Fentanyl Screen Not Detected Acetaminophen < 3 Ur Barbiturates Screen Not Detected Ur Phencyclidine Scrn Not Detected Ur Amphetamines Screen POSITIVE H U Benzodiazepines Scrn Not Detected Urine Cocaine Screen Not Detected U Marijuana (THC) Screen POSITIVE H Ethyl Alcohol < 10 03/10/25 07:22 MCV 85.1 MCH 29.1 MCHC 34.3 RDW 13.1 Plt Count 280 MPV 9.6 Immature Gran % (Auto) Neut % (Auto) Lymph % (Auto) [place] % (Auto) Eos % (Auto) Baso % (Auto) Lymph # (Auto) [place] # (Auto) Eos # (Auto) Baso # (Auto) Abs Immat Gran (auto) Absolute Neuts (auto) Absolute Nucleated RBC 0.000 Nucleated RBC % (auto) 0.0 Anion Gap 11 L Estim Creat Clear Calc 86.0 Estimated GFR > 60 Random Glucose 86 Calcium 9.0 D Magnesium 1.8 Total Bilirubin Direct Bilirubin AST ALT Alkaline Phosphatase Total Creatine Kinase 109 Total Protein Albumin TSH Beta HCG, Quant Urine Color Urine Appearance Urine pH Ur Specific [place] Urine Protein Urine Glucose (UA) Urine Ketones Urine Blood Urine Nitrite Ur Leukocyte Esterase Urine RBC Urine WBC Ur Squamous Epith Cells Urine Bacteria Hyaline Casts Salicylates Urine Opiates Screen Ur Buprenorphine Scrn Ur Oxycodone Screen Urine Methadone Screen Urine Fentanyl Screen Acetaminophen Ur Barbiturates Screen Ur Phencyclidine Scrn Ur Amphetamines Screen U Benzodiazepines Scrn Urine Cocaine Screen U Marijuana (THC) Screen Ethyl Alcohol Assessment and Plan (1) Stimulant abuse: Status: Acute Plan 34F PMH mood disorder, polysubstance abuse including adderal, meth, crack coacaine, presented with adderal overdose mood disorder with Adderall intoxication Discussed with poison control, monitor for 24 hours on tele with EKG q.2 hours Once medically cleared will need care team eval DVT prophylaxis with Lovenox Full code reason for continued hospitalization:monitoring adderal overdose Quality Stroke Does the patient have a stroke diagnosis?: No VTE Prior VTE?: No VTE Risk Level:: Medical - moderate - high VTE Device Contraindication: Treatment Not Indicated VTE Drug Contraindication: N/A - Med Ordered
--- NOTE | 2025-03-10 08:42 | PC.NURSE ---
patient a&ox3, 1:1 sitter at bedside, pt rr equal/non labored lungs clear, school bus monitor intact sinus victor hugo on monitor, repeat ekg performed, pt denies pain/discomfort- denies si/hi, call elise within reach, plan of care ongoing.
--- NOTE | 2025-03-10 08:43 | PC.NURSE ---
pt refusing lovenox injections- pt is ambulatory with steady gait.
--- NOTE | 2025-03-10 10:42 | ECG_ITS ---
Test Reason : OD Blood Pressure : */* mmHG Vent. Rate : 52 BPM Atrial Rate : 52 BPM P-R Int : 122 ms QRS Dur : 74 ms QT Int : 466 ms P-R-T Axes : 41 53 76 degrees QTcB Int : 433 ms Sinus bradycardia with sinus arrhythmia Otherwise normal ECG When compared with ECG of 09-Mar-2025 16:21, Vent. rate has decreased by 50 bpm Referred By: Washington Hardy Electronically Signed By: EDITH GONZALEZ
--- NOTE | 2025-03-10 12:14 | PC.NURSE ---
poison control poison control called for follow up of patients labs and new ekg- information was given.
[2025-03-10 12:27] VITALS: BP 107/63; PULSE 111; RESP 22; TEMP 36.3; O2SAT 99
--- NOTE | 2025-03-10 14:37 | MHC.CM.PN ---
PT REPORTS SHE LIVES ALONE BUT WILL BE MOVING IN WITH HER PARENTS SOON SHE DOES NOT HAVE A PCP OR HEALTH INSURANCE AND SAYS SHE DOES NOT WANT A REFERRAL TO [facility] SHE WILL GET INSURANCE VIA HER EMPLOYER SOON SHE IS INDEPENDENT WITH CARE AND WILL DC HOME WITH NO SERVICES PARENTS WILL TRANSPORT
--- NOTE | 2025-03-10 14:43 | P.DS_ITS ---
DS: Providers Provider Date of Service: 03/10/25 Date of admission: 03/09/25 16:42 Date of discharge: 03/10/25 Primary care physician: None Physician Consults: 03/10/25 11:17 Inpt CARE Team Crisis Consult Routine Comment: Reason for consultation: adderal OD, medically cleared DS: Diagnosis Discharge Diagnosis (1) Stimulant abuse: Status: Acute DS: Summary Hospital Course Hospital Course: from initial hpi: 34F PMH mood disorder, polysubstance abuse including adderal, meth, crack coacaine, presented with adderal overdose. Patient states she has been having trouble coping and has previously abused Adderall in the past. For the past week she has been taking approximately 400 mg daily and on day of presentation took 1200 mg. Currently feeling stressed and anxious and some brain fog. Denies chest pain, shortness breath, fever, chills. EKG with sinus tachycardia of 102, QRS 76, QTC 474. hospital course: Patient was admitted for mood disorder with Adderall overdose. Poison control recommended 24 hours of tele monitoring and EKGs which remained normal. Was medically cleared and seen by care team who recommended inpatient psych admission. Time Attestation Discharge Coordination Time (in mins): 37 Quality: Safe Use of Opioids Does Pt have an Active Cancer Diagnosis on the Problem List?: No Quality: Stroke Does the patient have a stroke diagnosis?: No Physical Exam Exam: Exam: General: AO X 3, no acute distress Resp: CTA bilateral, no accessory muscles used CVS: S1,S2,RRR GI: soft, non tender, non distended Neuro: motor grossly intact, alert Psych: appropriate affect, appropriate insight Vital Signs: Vital Signs: Last Vital Signs Temp 97.3 F 03/10/25 12:27 Pulse 111 H 03/10/25 12:27 Resp 22 H 03/10/25 12:27 BP 107/63 03/10/25 12:27 Pulse Ox 99 03/10/25 12:27 O2 Del Method Room Air 03/10/25 12:27 BMI result Body Mass Index 25.6 DS: Data Data Completed and Pending Labs on day of discharge: Laboratory Results - last 24 hr 03/09/25 03/09/25 03/09/25 15:12 15:27 19:24 WBC 13.2 H RBC 4.11 L Hgb 12.0 Hct 34.3 L MCV 83.5 MCH 29.2 MCHC 35.0 RDW 12.7 Plt Count 342 MPV 9.9 Immature Gran % (Auto) 0.3 Neut % (Auto) 68.3 Lymph % (Auto) 22.1 [place] % (Auto) 7.7 Eos % (Auto) 1.2 Baso % (Auto) 0.4 Lymph # (Auto) 2.9 Ness # (Auto) 1.0 Eos # (Auto) 0.2 Baso # (Auto) 0.1 Abs Immat Gran (auto) 0.04 H Absolute Neuts (auto) 9.0 H Absolute Nucleated RBC 0.000 Nucleated RBC % (auto) 0.0 Sodium 142 Potassium 3.9 Chloride 113 H Carbon Dioxide 22 Anion Gap 11 L BUN 13 Creatinine 0.75 Estim Creat Clear Calc 87.2 Estimated GFR > 60 Random Glucose 96 Calcium 9.7 D Magnesium 1.7 Total Bilirubin 0.4 Direct Bilirubin 0.2 AST 24 ALT 15 Alkaline Phosphatase 53 Total Creatine Kinase 237 H Total Protein 6.6 Albumin 4.4 TSH 0.85 Beta HCG, Quant < 2 Urine Color Dark Yellow Urine Appearance Cloudy Urine pH 5.0 Ur Specific [place] 1.025 Urine Protein Trace Urine Glucose (UA) Negative Urine Ketones 15 Urine Blood Large (3+) H Urine Nitrite Negative Ur Leukocyte Esterase Trace H Urine RBC 3-5 H Urine WBC 0-5 Ur Squamous Epith Cells 6-10 Urine Bacteria 3+ Hyaline Casts 0-2 Salicylates < 5.0 L Urine Opiates Screen Not Detected Ur Buprenorphine Scrn Not Detected Ur Oxycodone Screen Not Detected Urine Methadone Screen Not Detected Urine Fentanyl Screen Not Detected Acetaminophen < 3 Ur Barbiturates Screen Not Detected Ur Phencyclidine Scrn Not Detected Ur Amphetamines Screen POSITIVE H U Benzodiazepines Scrn Not Detected Urine Cocaine Screen Not Detected U Marijuana (THC) Screen POSITIVE H Ethyl Alcohol < 10 03/10/25 07:22 WBC 7.1 RBC 4.22 Hgb 12.3 Hct 35.9 L MCV 85.1 MCH 29.1 MCHC 34.3 RDW 13.1 Plt Count 280 MPV 9.6 Immature Gran % (Auto) Neut % (Auto) Lymph % (Auto) [place]ess % (Auto) Eos % (Auto) Baso % (Auto) Lymph # (Auto) Ness # (Auto) Eos # (Auto) Baso # (Auto) Abs Immat Gran (auto) Absolute Neuts (auto) Absolute Nucleated RBC 0.000 Nucleated RBC % (auto) 0.0 Sodium 141 Potassium 3.8 Chloride 111 H Carbon Dioxide 23 Anion Gap 11 L BUN 11 Creatinine 0.76 Estim Creat Clear Calc 86.0 Estimated GFR > 60 Random Glucose 86 Calcium 9.0 D Magnesium 1.8 Total Bilirubin Direct Bilirubin AST ALT Alkaline Phosphatase Total Creatine Kinase 109 Total Protein Albumin TSH Beta HCG, Quant Urine Color Urine Appearance Urine pH Ur Specific [place] Urine Protein Urine Glucose (UA) Urine Ketones Urine Blood Urine Nitrite Ur Leukocyte Esterase Urine RBC Urine WBC Ur Squamous Epith Cells Urine Bacteria Hyaline Casts Salicylates Urine Opiates Screen Ur Buprenorphine Scrn Ur Oxycodone Screen Urine Methadone Screen Urine Fentanyl Screen Acetaminophen Ur Barbiturates Screen Ur Phencyclidine Scrn Ur Amphetamines Screen U Benzodiazepines Scrn Urine Cocaine Screen U Marijuana (THC) Screen Ethyl Alcohol Discharge Plan Discharge Anticipated Discharge Date/Time: 03/10/25 14:42 Patient Disposition: Xfer Psychiatric Hosp Discharge Diagnosis: adderal overdose Referrals: Physician,None [Primary Care Provider, Medical] - 1 Week Discharge Medications: Continued dextroamphetamine-amphetamine 10 mg tablet 1 tab PO DAILY propranolol 20 mg tablet 20 mg PO TID PRN (Reason: heart rate control) Diet: Advance to usual diet Activity on Discharge: As tolerated Stand Alone Forms: Patient Portal Discharge page Print Language: Armenian Care Plan Goals: recovery Health Concerns: adderal overdose Plan of Treatment: transfer to psych Assessment: see above
[2025-03-10] MEDS: Nicotine 21 MG PATCH.TD24 TRANSDERMA (17:32)
--- NOTE | 2025-03-10 17:34 | PC.NURSE ---
patient sleeping, woke to verbal stimulus, pt medicated with nicotine patch per her request. family at bedside, 1:1 sitter at bedside, pt denies si/hi, denies pain/discomfort at this time rr equal/non labored, engine monitor intact- presently sinus tach on monitor, plan of care ongoing
[2025-03-10 18:56] VITALS: BP 106/67; PULSE 88; RESP 20; TEMP 36.8; O2SAT 99
[2025-03-10 20:08] VITALS: BMI 25.9
[2025-03-10 20:19] VITALS: BP 136/73; PULSE 90; RESP 18; TEMP 36.2; O2SAT 100
[2025-03-11] MEDS: 0.9 % Sodium Chloride Flush 3 ML SYRINGE IVFLUSH (01:26)
[2025-03-11 03:10] VITALS: BP 127/74; PULSE 78; RESP 18; TEMP 36.3; O2SAT 100
[2025-03-11 07:31] VITALS: BP 118/71; PULSE 75; RESP 16; TEMP 36.6; O2SAT 97
[2025-03-11] MEDS: Nicotine 21 MG PATCH.TD24 TRANSDERMA (09:20)
--- NOTE | 2025-03-11 13:05 | P.DS_ITS ---
DS: Providers Provider Date of Service: 03/11/25 Date of admission: 03/09/25 16:42 Date of discharge: 03/11/25 Primary care physician: None Physician Consults: 03/10/25 11:17 Inpt CARE Team Crisis Consult Routine Comment: Reason for consultation: adderal OD, medically cleared DS: Diagnosis Discharge Diagnosis (1) Stimulant abuse: Status: Acute DS: Summary Hospital Course Hospital Course: from initial hpi: 34F PMH mood disorder, polysubstance abuse including adderal, meth, crack coacaine, presented with adderal overdose. Patient states she has been having trouble coping and has previously abused Adderall in the past. For the past week she has been taking approximately 400 mg daily and on day of presentation took 1200 mg. Currently feeling stressed and anxious and some brain fog. Denies chest pain, shortness breath, fever, chills. EKG with sinus tachycardia of 102, QRS 76, QTC 474. hospital course: Patient was admitted for mood disorder with Adderall overdose. Poison control recommended 24 hours of tele monitoring and EKGs which remained normal. Was medically cleared and seen by care team who recommended inpatient psych admission. Time Attestation Discharge Coordination Time (in mins): 35 Quality: Safe Use of Opioids Does Pt have an Active Cancer Diagnosis on the Problem List?: No Quality: Stroke Does the patient have a stroke diagnosis?: No Physical Exam Vital Signs: Vital Signs: Last Vital Signs Temp 97.8 F 03/11/25 07:31 Pulse 75 03/11/25 07:31 Resp 16 03/11/25 07:31 BP 118/71 03/11/25 07:31 Pulse Ox 97 03/11/25 07:31 O2 Del Method Room Air 03/11/25 07:31 BMI result Body Mass Index 25.9 Const: Other: Awake alert no acute distress Resp: Other: Clear to auscultation bilaterally no rales rhonchi or wheezes Cardio: Other: No S4; positive S1-S2; no S3 murmurs rubs or gallops GI: Other: Soft nontender nondistended normoactive bowel sounds Extrem: Other: No edema bilaterally Discharge Plan Discharge Anticipated Discharge Date/Time: 03/11/25 13:05 Patient Disposition: Xfer Psychiatric Hosp Discharge Diagnosis: adderal overdose Referrals: Physician,None [Primary Care Provider, Medical] - 1 Week Discharge Medications: Continued dextroamphetamine-amphetamine 10 mg tablet 1 tab PO DAILY propranolol 20 mg tablet 20 mg PO TID PRN (Reason: heart rate control) Discharge Orders: Discharge Order (Routine); Ordered 03/11/25 Ordered By: Yeison Marlow Diet: Advance to usual diet Activity on Discharge: As tolerated Stand Alone Forms: Patient Portal Discharge page Print Language: Georgian Care Plan Goals: recovery Health Concerns: adderal overdose Plan of Treatment: transfer to psych Assessment: see above
--- NOTE | 2025-03-11 13:07 | MHC.CM.PN ---
pt being transferred to psych
[2025-03-11 14:02] VITALS: BP 135/79; PULSE 96; RESP 16; TEMP 36.6; O2SAT 99
== END 2025-03-11 14:59 ==
LOC: HO.ED 16:15 → HO.EDOVER 16:50 → HO.S3 03-10 19:15
PROVIDERS: Admitting Provider Internal Medicine; Emergency Provider Emergency Medicine; Visit Provider Hospitalist
DX: F15.10 Other stimulant abuse, uncomplicated (principal); F39 Unspecified mood [affective] disorder; T43.621A Poisoning by amphetamines, accidental (unintentional), initial encounter; Y92.9 Unspecified place or not applicable; R00.0 Tachycardia, unspecified
CPT/HCPCS: 36415; 80048; 80076; 80143; 80179; 80307; 81001; 82550; 83735; 84443; 84702; 85025; 85027; 93005; 96361; 96374; 96376; 99221; 99285; J3360; J7120; S9485

== ENCOUNTER → 2025-03-09 14:08 | Outpatient (BNV) | payer SELFPAY | PROVIDERS: Admitting Provider Internal Medicine; Emergency Provider Emergency Medicine; Visit Provider Internal Medicine | DX: R00.0 Tachycardia, unspecified (principal) | CPT/HCPCS: 93010 ==

== ENCOUNTER 2025-03-09 16:42 | Outpatient (BNV) | payer SELFPAY | END 2025-03-10 10:42 | PROVIDERS: Admitting Provider Internal Medicine; Emergency Provider Emergency Medicine; Visit Provider Internal Medicine | DX: R00.1 Bradycardia, unspecified (principal) | CPT/HCPCS: 93010 ==

== ENCOUNTER → 2025-03-09 16:42 | Outpatient (BNV) | payer SELFPAY | PROVIDERS: Admitting Provider Internal Medicine; Emergency Provider Emergency Medicine; Visit Provider Internal Medicine | DX: F15.10 Other stimulant abuse, uncomplicated (principal) | CPT/HCPCS: 99223; 99232; 99239 ==

== ENCOUNTER 2025-03-11 15:19 | Inpatient (IN) | payer SELFPAY ==
[2025-03-11 15:19] VITALS: BP 127/73; PULSE 97; RESP 17; TEMP 37.3; O2SAT 99
--- NOTE | 2025-03-11 15:54 | PHA.MEDREC ---
Addendum entered by Janes Duong, PharmD 03/11/25 16:46: MED REC CHECKED BY [facility] Original Note: Pharmacy Consult ? Medication Reconciliation Pharmacy has completed the medication reconciliation. Spoke to patient yesterday to confirm med list. Patient was just discharges from [facility] to psych floor.
--- OUTSIDE RECORDS SUMMARY | 2025-03-11 16:30 | XMS_ITS | Clinical Summary ---
Author Organization [facility] Address [address] [place] [address] Phone Care Team Providers Care Financial Analysis Manager Name Role Phone Edwige Lao MD Primary Care Provider Immunizations Immunization Administration Dates Next Due DTaP [...] 11/25/2015 Influenza Vaccines (#1) 2025 COVID-19 Vaccine (2024- season) 2025 HIB Vaccines Completed 09/24/1990 IPV [...] age to complete this topic Care Teams Financial Analysis Manager Relationship Specialty Start Date End Date Edwige Lao MD [address] [place] [address] [place] [id number] PCP - General 01/19/17
--- OUTSIDE RECORDS SUMMARY | 2025-03-11 16:30 | XMS_ITS | Clinical Summary ---
Author Organization [facility] Address [address] [address] Phone Care Team Providers Care Shank Boner Name Role Phone Estella Andrea RNinvestor relations analyst Provider [phone] Allergies No known active allergies Active Problems [...] WELLSENSE NON NSPG [facility]CP [facility] [id number] Care Teams Shank Boner Relationship Specialty Start Date End Date Estella Andrea RN [address] [place] [id number] [email or web address] PCP - General Internal Medicine 04/12/20 Additional Source Comments The information contained in this document represents components of the legal health record. It is not the complete legal health record.[facility]
[2025-03-11 16:49] VITALS: BMI 25.4
--- NOTE | 2025-03-11 16:53 | PC.NURSE ---
Patient declined the flu vaccination when offered upon admission.
--- NOTE | 2025-03-11 17:35 | PC.ADMIT ---
Patient was admitted from [place] [address] this evening on a CV for tx of Unspecified Depression, Anxiety and Stimulant Dependence. Precipitant of admission includes patient taking both 1200mg of Adderall and 400mg of THC within one day. Prior to this, she reports taking her 90 day prescription of Adderall within one week and the 400mg of gummies daily It's a pattern I have been doing for years now . Upon admission assessment, pt is A&Ox4, with appropriate eye contact and linear thought process. She is pleasant and cooperative, though she endorses mild depression and anxiety (something she reports struggling with for years), deneis SI/HI/AVH. C/O poor appetite and sleep r/t the adderall abuse, though states her sleep has improved while being in the hospital. Pt reports having many recent life stressors, But my breaking point was getting evicted and having my dog taken from me . Patient denies this incident being a suicide attempt, and denies any other hx of SI I was just trying to cope with everything going on . Patient describes feeling hopeless , and wanting to get help. Tox screen positive for amphetamines and marijuana. She is hoping to be set up with mental health providers when discharged. Skin check completed, noted to have a bruise to her right forearm, which she reports occurred after having labs drawn on the medical floor. All other skin WDI. Placed on 15 minute checks for safety.
[2025-03-11 19:30] VITALS: BP 120/69; PULSE 91; RESP 16; TEMP 36.9; O2SAT 98
[2025-03-12 07:00] VITALS: BMI 25.1
[2025-03-12 07:41] VITALS: BP 127/68; PULSE 76; RESP 14; TEMP 36.6; O2SAT 98
--- NOTE | 2025-03-12 08:46 | P.HPPS_ITS ---
HPI Date of Service: 03/12/25 Chief Complaint: Crisis Sources of Information: patient interviewed, chart reviewed and crisis/core team assessment reviewed HPI Subjective Notes: Jama Warning and Conditional Voluntary Narrative: Patient is a 34 year old female with hx of MDD, Stimulant abuse d/o and marijuana use d/o who was brought in via ambulance d/t suicidal ideation secondary to increased depression and abusing Adderall. Per crisis report, patient was brought in via ambulance secondary to taking a large amount of Adderall and THC gummies. Patient reportedly has been taking 1200 mg of Adderall and 400mg THC gummies in 1 day. Patient reports she has been abusing her Adderall and taking her 90 day prescription over 1 week and then crashing into a depression and sleeping for the other 3 weeks and repeats the cycle monthly. Patient also reports taking 400 mg of THC gummies daily. Patient reports suicidal ideation however with no plan or intent stating, I don't care if I get hit by bus . Denies HI/VH. Patient reports since her marriage ended and her grandmother in 2018, patient began abusing Adderall prescription. Patient reports she has been struggling with depression and anxiety for many years without getting treatment. Patient stated, I don't want to do this anymore. I just want to get help . Patient reports auditory hallucinations stating, I feel I hear a noise a lot . She reports poor sleep and appetite secondary to stimulant abuse. Patient reports 60 lb weight loss in 1 year. Patient reports she lost her home as of yesterday due to not paying bills. Patient reports she will be living with her parents in an in-law apartment after treatment. This is patient's 1st inpatient psychiatric hospitalization. Denies history of PHP or respite admissions. Utox positive for amphetamines and marijuana. Denies all other substance use. During admission assessment, pt presents alert and oriented x3. calm and cooperative. Patient reports feeling depressed and anxious ; pt stated, for the past year I've been abusing my Adderall due to lots going on. I was losing my home and my ex- lives it in so I moved in with my parents. I had to surrender my dog because I couldn't bring it to my parents . Patient reports she was not trying to harm herself; pt stated, I wasn't trying to kill myself. I felt like I needed help and didn't know how to get it. I'm cut off from Adderall and I wanted to stop it . Patient reports she has been abusing Adderall for years ; pt stated, no one was questioning why I was sleeping so much . denies SI/HI/VH/AH. Patient reports she would like a referral to an outpatient therapist and would like to be started on an antidepressant. Pt reports hx of taking Lexapro and Wellbutrin; pt could not recall dose or time frame; pt stated, I don't know if they even worked because I was abusing the Adderall . Discussed starting Lexapro; risks/benefits reviewed; pt agreed to trial. Past Psychiatric History: This is patient's first inpatient psychiatric admission. Prescriber: Ne [facility] Does not have therapist. Med hx: lexapro, wellbutrin, adderall. does not recall dosage or time frame. denies hx of SA/SIB. Medical Evaluation Reviewed: Yes [facility] Medical History Stimulant abuse Family History: denies Social History: lives with parents. . 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 attended some college. Substance History: stimulant abuse and marijuana use. Trauma History: denies Diagnostics Vital Signs (24Hr): Vital Signs - 24 hr 03/11/25 15:19 03/11/25 19:30 03/12/25 07:41 Temperature 99.1 F 98.4 F 97.9 F Pulse Rate 97 91 76 Respiratory Rate 17 16 14 Blood Pressure 127/73 120/69 127/68 Pulse Oximetry 99 98 98 Oxygen Delivery Method Room Air Room Air Room Air BMI result Body Mass Index 25.4 Labs 03/12/25 08:20 Meds/Allergies Meds Home Medications ?Medication ?Instructions ?Recorded ?Confirmed ?Type dextroamphetamine-amphetamine 10 1 tab PO DAILY 03/11/25 History mg tablet propranolol 20 mg tablet 20 mg PO TID PRN heart rate control 03/09/25 03/11/25 History Allergies Allergies Allergy/AdvReac Type Severity Reaction Status Date / Time No Known Allergies (No Known Allergy Verified 03/09/25 14:07 Allergies*) Mental Status Exam Mental Status Exam Narrative: Pt is alert and oriented; behavior is cooperative and calm; dressed in casual attire; mood is described as depressed and anxious ; eye contact appropriate; Speech is normal rate, volume and not pressured; thought process is organized; Thought content is on tx; ; denies SI/HI/VH/AH. Assessment & Plan Assessment & Plan (1) MDD (major depressive disorder), recurrent episode: Status: Acute Code(s): F33.9 - Major depressive disorder, recurrent, unspecified (2) Stimulant abuse: Status: Acute Code(s): F15.10 - Other stimulant abuse, uncomplicated (3) Marijuana abuse: Status: Acute Code(s): F12.10 - Cannabis abuse, uncomplicated Plan Patient is a 34 year old female with hx of MDD, Stimulant abuse d/o and marijuana use d/o who was brought in via ambulance d/t suicidal ideation secondary to increased depression and abusing Adderall. Plan: CV 15 minute safety checks obtain collateral Start: Lexapro 10mg PO bedtime referral to outpatient therapist encourage groups discharge planning Patient educated on: diagnosis and medication risk/benefits Reason for continued inpatient stay Substantial Risk for: med/psych decompensation Statement Statement: I have reviewed the history and physical and performed a pertinent examination on my patient. No changes have occurred unless specified. If the History and Physical was not performed prior to admission, the Hospitalist's service will be consulted for completing the admission physical. Time Spent With Patient Time: Total time managing care of this patient today _60___ minutes.
[2025-03-12 08:48] LABS: Hemoglobin A1C 115.5527 umol/L; Total Hemoglobin (HGBA1C) 3772.4103 umol/L
[2025-03-12 08:52] LABS: Alanine Aminotransferase 15 U/L (0-31); Albumin Level 4.8 g/dL (3.5-5.0); Alkaline Phosphatase 64 U/L (39-117); Anion Gap 11 (12-20); Aspartate Amino Transferase 19 U/L (5-31); Blood Urea Nitrogen 11 mg/dL (9-16); Calcium 9.4 mg/dL (8.4-10.2); Carbon Dioxide 24 mmol/L (22-29); Chloride 109 mmol/L (96-108); Cholesterol 181 mg/dL (<200); Creatinine Clr Calc Pharmacy 85.7; Estimated Glomerular Filt Rate > 60; HDL Cholesterol 44 mg/dL (>40); Potassium 4.1 mmol/L (3.3-5.1); Sodium 140 mmol/L (135-145); Total Protein 7.7 g/dL (6.5-8.0); Triglycerides 105 mg/dL (<150)
--- NOTE | 2025-03-12 09:27 | P.CONHOSP_ITS ---
History of Present Illness Data of Consult Service Date: 03/12/25 Primary Care Provider: Unknown Physician HPI Reason for consult: Medical management 34-year-old female with past medical history of anxiety and depression, also history of stimulant abuse. Patient ingested approximately 500 mg prior to presentation to the ED. Patient was admitted to the hospital, monitored on tele for 24 hours and EKGs remained normal. She was medically cleared and seen by care team recommended for inpatient psychiatric admission. On exam she denies any medical concerns. She appears to be in no acute distress. Denies any shortness of breath, dizziness lightheadedness or any other concerning symptoms. Review of Systems 2 Review of Systems: Denies any shortness of breath, chest pain, palpitations, dizziness, lightheadedness, headaches, dysuria, abdominal pain or discomfort, nausea, vomiting or diarrhea. Denies Chills, body aches, muscle aches, fatigue or weight loss. [facility] Medical History Stimulant abuse Social History Household Members: Family Household Members Other:: parents Housing: Apartment Do you presently have visiting nurse or other home services: No Alcohol intake: current Patient Tobacco Use Status: Current everyday Tobacco user Tobacco use type: Cigarette Cigarette Packs Per Day: 1 Cigarettes Per Day: 20.0 Smoked in Last 30 Days: Yes e-Cigarette/Vaping Use: Never Used Patient Interested in Nicotine Replacement: Yes Patient Given Instructions on How to Stop Smoking: No Second Hand Smoke Exposure: No Currently Displaying Signs/Symptoms of Drug Intoxication Withdrawal: No Have you been hit, kicked, punched, or otherwise hurt by someone within the past year? If so, by whom?: No Do you feel safe in your current relationship?: Yes Is there a partner from a previous relationship who is making you feel unsafe now?: No Are you made to feel afraid or neglected: No [facility] Practices: None Advance Directives: No Advance Directives Information Provided: No Do you have thoughts of harming others: None Do you have a plan to hurt others: No Plan Recently lost weight without trying: No How much weight loss: Not applicable Eating poorly because of decreased appetite: Yes Nutrition screen score: 1 Nutrition Risks: No Nutritional Risk Patient : No : No Poor oral hygiene: No service: No Sexual orientation: Straight/Heterosexual Meds Allergies Allergy/AdvReac Type Severity Reaction Status Date / Time No Known Allergies (No Known Allergy Verified 03/09/25 14:07 Allergies*) Active Medications: Current Medications Acetaminophen (Acetaminophen 325 Mg Tablet) 650 mg PO Q6H PRN PRN Reason: Headache/Pain, Scale 1-10 Al Hydroxide/Mg Hydroxide (Magnesium Hydrox/Alum Hydrox 30 Ml Oral.Susp) 30 ml PO Q6H PRN PRN Reason: Heartburn/Nausea Hydroxyzine HCl (Hydroxyzine Hcl 25 Mg Tablet) 25 mg PO Q6H PRN PRN Reason: mild anxiety Last Admin: 03/11/25 20:48 Dose: 25 mg Magnesium Hydroxide (Milk Of Magnesia 30 Ml Oral.Susp) 30 ml PO DAILY PRN PRN Reason: Constipation Nicotine (Nicotine 21 Mg Patch.Td24) 21 mg TRANSDERMA DAILY JULIO Nicotine Polacrilex (Nicotine Polacrilex 2 Mg Gum) 4 mg BUCCAL Q2H PRN PRN Reason: Nicotine Cravings Olanzapine (Olanzapine 5 Mg Tablet) 5 mg PO Q4H PRN PRN Reason: agitation Trazodone HCl (Trazodone Hcl 50 Mg Tablet) 50 mg PO BEDTIME MRX1 PRN PRN Reason: Insomnia Last Admin: 03/11/25 20:48 Dose: 50 mg Home Medications ?Medication ?Instructions ?Recorded ?Confirmed ?Last Taken ?Type dextroamphetamine-amphetamine 10 1 tab PO DAILY 03/11/25 03/09/25 History mg tablet propranolol 20 mg tablet 20 mg PO TID PRN heart rate control 03/09/25 03/11/25 Unknown History Physical Exam 2 Vital Signs and Narrative: Vital Signs: Last Vital Signs Temp 97.9 F 03/12/25 07:41 Pulse 76 03/12/25 07:41 Resp 14 03/12/25 07:41 BP 127/68 03/12/25 07:41 Pulse Ox 98 03/12/25 07:41 O2 Del Method Room Air 03/12/25 07:41 BMI result Body Mass Index 25.4 CONST: Alert and oriented, in NAD. Well nourished HEENT: Normocephalic, atraumatic, MMM, Eyes clear, Neck supple RESP: Lungs clear, RRR even and regular HEART:,RRR, S1, S2. No murmur, no edema GI:Abdomen Soft NT, ND. + BS times four :Deferred SKIN: Warm dry and intact, no visible lesions or rashes NEURO:CN II-XII Intact bilaterally, Sensation intact. Speech clear PSYCH: Normal affect Results Labs 03/12/25 08:20 Labs: Laboratory Results - last 24 hr 03/12/25 08:20 Anion Gap 11 L Estim Creat Clear Calc 85.7 Estimated GFR > 60 Random Glucose 99 Estimat Average Glucose 97 Hemoglobin A1c % 5.0 Calcium 9.4 Total Bilirubin 0.4 AST 19 ALT 15 Alkaline Phosphatase 64 Total Protein 7.7 Albumin 4.8 Triglycerides 105 Cholesterol 181 LDL Cholesterol, Calc 116 H HDL Cholesterol 44 Assessment and Plan (1) Stimulant abuse: Status: Acute Plan 34-year-old female with a past medical history of anxiety and depression and stimulant use. She presented to the ED after she ingested approximately 500 mg of Adderall. She was admitted inpatient hospital and monitored, now transferred to psych for further care and treatment. Depression/anxiety/stimulant use Treatment per psychiatric team Thank you for allowing me to participate in the care of this patient. Will follow as needed, please notify medical provider with any changes in condition or concerns.
[2025-03-12] MEDS: Nicotine 21 MG PATCH.TD24 TRANSDERMA (09:31)
[2025-03-12 20:40] VITALS: BP 126/76; PULSE 93; RESP 16; TEMP 36.8; O2SAT 98
[2025-03-13 07:10] VITALS: BP 130/74; PULSE 93; RESP 16; TEMP 36.7; O2SAT 98
--- NOTE | 2025-03-13 08:48 | HO.PSYCHPN ---
Subjective Subjective Date of Service: 03/13/25 Reason For Visit: Crisis Subjective Notes: 3 Day Interim History: Active on unit. attending groups. 3 day notice up on 03/17/25. Patient reports feeling good today; pt stated, I'm doing well. I feel more clear headed . denies SI/HI/VH/AH. Pt denies any side effects from starting medications. Continue tx plan. Medication Compliance: Yes Side effects from medications: No Attending Groups: Yes Mental Status Exam Mental Status Exam Narrative: Pt is alert and oriented; behavior is cooperative and calm; dressed in casual attire; mood is described as good ; eye contact appropriate; Speech is normal rate, volume and not pressured; thought process is organized; Thought content is on tx; ; denies SI/HI/VH/AH. Diagnostics Vital Signs (24Hr): Vital Signs - 24 hr 03/12/25 20:40 03/13/25 07:10 Temperature 98.3 F 98.1 F Pulse Rate 93 93 Respiratory Rate 16 16 Blood Pressure 126/76 130/74 Pulse Oximetry 98 98 Oxygen Delivery Method Room Air Room Air BMI result Body Mass Index 25.1 Labs 03/12/25 08:20 Labs: Laboratory Results - last 48 hr 03/12/25 08:20 Sodium 140 Potassium 4.1 Chloride 109 H Carbon Dioxide 24 Anion Gap 11 L BUN 11 Creatinine 0.76 Estim Creat Clear Calc 85.7 Estimated GFR > 60 Random Glucose 99 Estimat Average Glucose 97 Hemoglobin A1c % 5.0 Calcium 9.4 Total Bilirubin 0.4 AST 19 ALT 15 Alkaline Phosphatase 64 Total Protein 7.7 Albumin 4.8 Triglycerides 105 Cholesterol 181 LDL Cholesterol, Calc 116 H HDL Cholesterol 44 Medications Medications Current Medications Acetaminophen (Acetaminophen 325 Mg Tablet) 650 mg PO Q6H PRN PRN Reason: Headache/Pain, Scale 1-10 Al Hydroxide/Mg Hydroxide (Magnesium Hydrox/Alum Hydrox 30 Ml Oral.Susp) 30 ml PO Q6H PRN PRN Reason: Heartburn/Nausea Escitalopram Oxalate (Escitalopram Oxalate 10 Mg Tablet) 10 mg PO BEDTIME JULIO Last Admin: 03/12/25 20:38 Dose: 10 mg Hydroxyzine HCl (Hydroxyzine Hcl 25 Mg Tablet) 25 mg PO Q6H PRN PRN Reason: mild anxiety Last Admin: 03/11/25 20:48 Dose: 25 mg Magnesium Hydroxide (Milk Of Magnesia 30 Ml Oral.Susp) 30 ml PO DAILY PRN PRN Reason: Constipation Nicotine (Nicotine 21 Mg Patch.Td24) 21 mg TRANSDERMA DAILY JULIO Last Admin: 03/12/25 09:31 Dose: 21 mg Nicotine Polacrilex (Nicotine Polacrilex 2 Mg Gum) 4 mg BUCCAL Q2H PRN PRN Reason: Nicotine Cravings Olanzapine (Olanzapine 5 Mg Tablet) 5 mg PO Q4H PRN PRN Reason: agitation Trazodone HCl (Trazodone Hcl 50 Mg Tablet) 50 mg PO BEDTIME MRX1 PRN PRN Reason: Insomnia Last Admin: 03/12/25 20:38 Dose: 50 mg Allergies Allergies Allergy/AdvReac Type Severity Reaction Status Date / Time No Known Allergies (No Known Allergy Verified 03/09/25 14:07 Allergies*) Assessment & Plan Assessment & Plan (1) MDD (major depressive disorder), recurrent episode: Status: Acute Code(s): F33.9 - Major depressive disorder, recurrent, unspecified (2) Stimulant abuse: Status: Acute Code(s): F15.10 - Other stimulant abuse, uncomplicated (3) Marijuana abuse: Status: Acute Code(s): F12.10 - Cannabis abuse, uncomplicated Plan Patient is a 34 year old female with hx of MDD, Stimulant abuse d/o and marijuana use d/o who was brought in via ambulance d/t suicidal ideation secondary to increased depression and abusing Adderall. Plan: CV 15 minute safety checks obtain collateral Start: Lexapro 10mg PO bedtime referral to outpatient therapist encourage groups discharge planning 03/13: Active on unit. attending groups. 3 day notice up on 03/17/25. Patient reports feeling good today; pt stated, I'm doing well. I feel more clear headed . denies SI/HI/VH/AH. Pt denies any side effects from starting medications. Continue tx plan. Patient educated on: diagnosis and medication risk/benefits Reason for continued inpatient stay Substantial Risk for: med/psych decompensation Time Spent With Patient Time: Total time managing care of this patient today _20___ minutes.
[2025-03-13] MEDS: Nicotine 21 MG PATCH.TD24 TRANSDERMA (08:50)
[2025-03-13 20:00] VITALS: BP 135/71; PULSE 60; RESP 16; TEMP 37; O2SAT 98
--- NOTE | 2025-03-14 07:30 | HO.PSYCHPN ---
Subjective Subjective Date of Service: 03/14/25 Reason For Visit: Crisis Subjective Notes: 3 Day Interim History: met with patient. Discussed with Nursing. Slept well. Attending groups. In the milieu. Reports today feeling good. Not depressed. No SI. No agitation or psychosis. Feeling positive regarding Lexapro. Looking forward to discharging after the weekend in returning to work. Supportive family and living situation. Also planning on attending NA meeting for the 1st time as part of her discharge and support plan Medication Compliance: Yes Side effects from medications: No Attending Groups: Yes Review of Systems Review of Systems Nothing of note Mental Status Exam Mental Status Exam Narrative: Pt is alert and oriented; behavior is cooperative and calm; dressed in casual attire; mood is described as great ; eye contact appropriate; Speech is normal rate, volume and not pressured; thought process is organized; Thought content is on tx; ; denies SI/HI/VH/AH. Diagnostics Vital Signs (24Hr): Vital Signs - 24 hr 03/13/25 20:00 Temperature 98.6 F Pulse Rate 60 Respiratory Rate 16 Blood Pressure 135/71 Pulse Oximetry 98 Oxygen Delivery Method Room Air BMI result Body Mass Index 25.1 Labs 03/12/25 08:20 Labs: Laboratory Results - last 48 hr 03/12/25 08:20 Sodium 140 Potassium 4.1 Chloride 109 H Carbon Dioxide 24 Anion Gap 11 L BUN 11 Creatinine 0.76 Estim Creat Clear Calc 85.7 Estimated GFR > 60 Random Glucose 99 Estimat Average Glucose 97 Hemoglobin A1c % 5.0 Calcium 9.4 Total Bilirubin 0.4 AST 19 ALT 15 Alkaline Phosphatase 64 Total Protein 7.7 Albumin 4.8 Triglycerides 105 Cholesterol 181 LDL Cholesterol, Calc 116 H HDL Cholesterol 44 Medications Medications Current Medications Acetaminophen (Acetaminophen 325 Mg Tablet) 650 mg PO Q6H PRN PRN Reason: Headache/Pain, Scale 1-10 Al Hydroxide/Mg Hydroxide (Magnesium Hydrox/Alum Hydrox 30 Ml Oral.Susp) 30 ml PO Q6H PRN PRN Reason: Heartburn/Nausea Escitalopram Oxalate (Escitalopram Oxalate 10 Mg Tablet) 10 mg PO BEDTIME JULIO Last Admin: 03/13/25 20:35 Dose: 10 mg Hydroxyzine HCl (Hydroxyzine Hcl 25 Mg Tablet) 25 mg PO Q6H PRN PRN Reason: mild anxiety Last Admin: 03/11/25 20:48 Dose: 25 mg Magnesium Hydroxide (Milk Of Magnesia 30 Ml Oral.Susp) 30 ml PO DAILY PRN PRN Reason: Constipation Nicotine (Nicotine 21 Mg Patch.Td24) 21 mg TRANSDERMA DAILY JULIO Last Admin: 03/13/25 08:50 Dose: 21 mg Nicotine Polacrilex (Nicotine Polacrilex 2 Mg Gum) 4 mg BUCCAL Q2H PRN PRN Reason: Nicotine Cravings Olanzapine (Olanzapine 5 Mg Tablet) 5 mg PO Q4H PRN PRN Reason: agitation Trazodone HCl (Trazodone Hcl 50 Mg Tablet) 50 mg PO BEDTIME MRX1 PRN PRN Reason: Insomnia Last Admin: 03/13/25 20:38 Dose: 50 mg Allergies Allergies Allergy/AdvReac Type Severity Reaction Status Date / Time No Known Allergies (No Known Allergy Verified 03/09/25 14:07 Allergies*) Assessment & Plan Assessment & Plan (1) MDD (major depressive disorder), recurrent episode: Status: Acute Code(s): F33.9 - Major depressive disorder, recurrent, unspecified (2) Stimulant abuse: Status: Acute Code(s): F15.10 - Other stimulant abuse, uncomplicated (3) Marijuana abuse: Status: Acute Code(s): F12.10 - Cannabis abuse, uncomplicated Plan Patient is a 34 year old female with hx of MDD, Stimulant abuse d/o and marijuana use d/o who was brought in via ambulance d/t suicidal ideation secondary to increased depression and abusing Adderall. Plan: CV 15 minute safety checks obtain collateral Start: Lexapro 10mg PO bedtime referral to outpatient therapist encourage groups discharge planning 03/13: Active on unit. attending groups. 3 day notice up on 03/17/25. Patient reports feeling good today; pt stated, I'm doing well. I feel more clear headed . denies SI/HI/VH/AH. Pt denies any side effects from starting medications. Continue tx plan. 03/14: no changes. Reason for continued inpatient stay Substantial Risk for: harm to self and other (3 day notice eval) Time Spent With Patient Time: Total time managing care of this patient today ____ minutes.
[2025-03-14 07:41] VITALS: BP 127/73; PULSE 100; RESP 20; TEMP 36.6; O2SAT 99
[2025-03-14] MEDS: Nicotine 21 MG PATCH.TD24 TRANSDERMA (08:40)
[2025-03-14 20:00] VITALS: BP 144/88; PULSE 100; RESP 16; TEMP 36.9; O2SAT 98
[2025-03-15 08:00] VITALS: BP 136/80; PULSE 88; RESP 14; TEMP 36.8; O2SAT 98
[2025-03-15] MEDS: Nicotine 21 MG PATCH.TD24 TRANSDERMA (08:44)
--- NOTE | 2025-03-15 11:01 | HO.PSYCHPN ---
Subjective Subjective Date of Service: 03/15/25 Reason For Visit: Crisis Interim History: Met with patient. Discussed with nursing. Overall continues to do well. Feeling stable from a mood perspective. Looking forward to discharge planning and being with family, her boyfriend and also attending an AA meetings as well as returning to work. Was asking about non stimulant options for ADHD and we will start Wellbutrin today. Medication Compliance: Yes Side effects from medications: No Attending Groups: Yes Review of Systems Acute medical concerns: No Review of Systems Review of Systems Nothing of note Mental Status Exam Mental Status Exam Narrative: Pt is alert and oriented; behavior is cooperative and calm; dressed in casual attire; mood is described as great ; eye contact appropriate; Speech is normal rate, volume and not pressured; thought process is organized; Thought content is on tx; ; denies SI/HI/VH/AH. Diagnostics Vital Signs (24Hr): Vital Signs - 24 hr 03/14/25 20:00 03/15/25 08:00 Temperature 98.5 F 98.3 F Pulse Rate 100 88 Respiratory Rate 16 14 Blood Pressure 144/88 H 136/80 Pulse Oximetry 98 98 Oxygen Delivery Method Room Air Room Air BMI result Body Mass Index 25.1 Labs 03/12/25 08:20 Medications Medications Current Medications Acetaminophen (Acetaminophen 325 Mg Tablet) 650 mg PO Q6H PRN PRN Reason: Headache/Pain, Scale 1-10 Al Hydroxide/Mg Hydroxide (Magnesium Hydrox/Alum Hydrox 30 Ml Oral.Susp) 30 ml PO Q6H PRN PRN Reason: Heartburn/Nausea Escitalopram Oxalate (Escitalopram Oxalate 10 Mg Tablet) 10 mg PO BEDTIME [facility] Last Admin: 03/14/25 19:59 Dose: 10 mg Hydroxyzine HCl (Hydroxyzine Hcl 25 Mg Tablet) 25 mg PO Q6H PRN PRN Reason: mild anxiety Last Admin: 03/11/25 20:48 Dose: 25 mg Magnesium Hydroxide (Milk Of Magnesia 30 Ml Oral.Susp) 30 ml PO DAILY PRN PRN Reason: Constipation Nicotine (Nicotine 21 Mg Patch.Td24) 21 mg TRANSDERMA DAILY [facility] Last Admin: 03/15/25 08:44 Dose: 21 mg Nicotine Polacrilex (Nicotine Polacrilex 2 Mg Gum) 4 mg BUCCAL Q2H PRN PRN Reason: Nicotine Cravings Olanzapine (Olanzapine 5 Mg Tablet) 5 mg PO Q4H PRN PRN Reason: agitation Trazodone HCl (Trazodone Hcl 50 Mg Tablet) 50 mg PO BEDTIME MRX1 PRN PRN Reason: Insomnia Last Admin: 03/14/25 19:59 Dose: 50 mg Allergies Allergies Allergy/AdvReac Type Severity Reaction Status Date / Time No Known Allergies (No Known Allergy Verified 03/09/25 14:07 Allergies*) Assessment & Plan Assessment & Plan (1) MDD (major depressive disorder), recurrent episode: Status: Acute Code(s): F33.9 - Major depressive disorder, recurrent, unspecified (2) Stimulant abuse: Status: Acute Code(s): F15.10 - Other stimulant abuse, uncomplicated (3) Marijuana abuse: Status: Acute Code(s): F12.10 - Cannabis abuse, uncomplicated Plan Patient is a 34 year old female with hx of MDD, Stimulant abuse d/o and marijuana use d/o who was brought in via ambulance d/t suicidal ideation secondary to increased depression and abusing Adderall. Plan: CV 15 minute safety checks obtain collateral Start: Lexapro 10mg PO bedtime referral to outpatient therapist encourage groups discharge planning 03/13: Active on unit. attending groups. 3 day notice up on 03/17/25. Patient reports feeling good today; pt stated, I'm doing well. I feel more clear headed . denies SI/HI/VH/AH. Pt denies any side effects from starting medications. Continue tx plan. 03/14: no changes. 03/15/2025: Start Wellbutrin as nonstimulant option for ADHD Reason for continued inpatient stay Substantial Risk for: rapid decompensation Time Spent With Patient Time: Total time managing care of this patient today ____ minutes.
[2025-03-15] MEDS: buPROPion HCl XL 150 MG TAB.ER.24H PO (15:33)
[2025-03-15 19:30] VITALS: BP 165/79; PULSE 109; RESP 16; TEMP 36.5; O2SAT 98
[2025-03-15 20:29] VITALS: BP 136/93; PULSE 114
[2025-03-16 07:20] VITALS: BP 121/76; PULSE 101; RESP 18; TEMP 36.3; O2SAT 99
[2025-03-16] MEDS: buPROPion HCl XL 150 MG TAB.ER.24H PO (08:35)
[2025-03-16] MEDS: Nicotine 21 MG PATCH.TD24 TRANSDERMA (08:35)
--- NOTE | 2025-03-16 10:02 | P.PNPSI_ITS ---
Subjective Subjective Date of Service: 03/16/25 Reason For Visit: Crisis Subjective Notes: 3 Day Interim History: Active on unit. social with peers. attending groups. Patient reports feeling good ; denies SI/HI/VH/AH. Patient reports she is looking forward to returning home. denies any side effects from medications. She plans on following up with her outpatient providers and attending NA meetings. Medication Compliance: Yes Side effects from medications: No Attending Groups: Yes Mental Status Exam Mental Status Exam Narrative: Pt is alert and oriented; behavior is cooperative and calm; dressed in casual attire; mood is described as good ; eye contact appropriate; Speech is normal rate, volume and not pressured; thought process is organized; Thought content is on discharge; denies SI/HI/VH/AH. Diagnostics Vital Signs (24Hr): Vital Signs - 24 hr 03/15/25 19:30 03/15/25 20:29 03/16/25 07:20 Temperature 97.7 F 97.3 F Pulse Rate 109 H 114 H 101 H Respiratory Rate 16 18 Blood Pressure 165/79 H 136/93 H 121/76 Pulse Oximetry 98 99 Oxygen Delivery Method Room Air Room Air BMI result Body Mass Index 25.1 Labs 03/12/25 08:20 Medications Medications Current Medications Acetaminophen (Acetaminophen 325 Mg Tablet) 650 mg PO Q6H PRN PRN Reason: Headache/Pain, Scale 1-10 Al Hydroxide/Mg Hydroxide (Magnesium Hydrox/Alum Hydrox 30 Ml Oral.Susp) 30 ml PO Q6H PRN PRN Reason: Heartburn/Nausea Bupropion HCl (Bupropion Hcl Xl 150 Mg Tab.Er.24h) 150 mg PO DAILY [facility] Last Admin: 03/16/25 08:35 Dose: 150 mg Escitalopram Oxalate (Escitalopram Oxalate 10 Mg Tablet) 10 mg PO BEDTIME [facility] Last Admin: 03/15/25 20:28 Dose: 10 mg Hydroxyzine HCl (Hydroxyzine Hcl 25 Mg Tablet) 25 mg PO Q6H PRN PRN Reason: mild anxiety Last Admin: 03/15/25 20:28 Dose: 25 mg Magnesium Hydroxide (Milk Of Magnesia 30 Ml Oral.Susp) 30 ml PO DAILY PRN PRN Reason: Constipation Nicotine (Nicotine 21 Mg Patch.Td24) 21 mg TRANSDERMA DAILY [facility] Last Admin: 03/16/25 08:35 Dose: 21 mg Nicotine Polacrilex (Nicotine Polacrilex 2 Mg Gum) 4 mg BUCCAL Q2H PRN PRN Reason: Nicotine Cravings Olanzapine (Olanzapine 5 Mg Tablet) 5 mg PO Q4H PRN PRN Reason: agitation Trazodone HCl (Trazodone Hcl 50 Mg Tablet) 50 mg PO BEDTIME MRX1 PRN PRN Reason: Insomnia Last Admin: 03/15/25 22:37 Dose: 50 mg Allergies Allergies Allergy/AdvReac Type Severity Reaction Status Date / Time No Known Allergies (No Known Allergy Verified 03/09/25 14:07 Allergies*) Assessment & Plan Assessment & Plan (1) MDD (major depressive disorder), recurrent episode: Status: Acute Code(s): F33.9 - Major depressive disorder, recurrent, unspecified (2) Stimulant abuse: Status: Acute Code(s): F15.10 - Other stimulant abuse, uncomplicated (3) Marijuana abuse: Status: Acute Code(s): F12.10 - Cannabis abuse, uncomplicated Plan Patient is a 34 year old female with hx of MDD, Stimulant abuse d/o and marijuana use d/o who was brought in via ambulance d/t suicidal ideation secondary to increased depression and abusing Adderall. Plan: CV 15 minute safety checks obtain collateral Start: Lexapro 10mg PO bedtime referral to outpatient therapist encourage groups discharge planning 03/13: Active on unit. attending groups. 3 day notice up on 03/17/25. Patient reports feeling good today; pt stated, I'm doing well. I feel more clear headed . denies SI/HI/VH/AH. Pt denies any side effects from starting medications. Continue tx plan. 03/14: no changes. 03/15/2025: Start Wellbutrin as nonstimulant option for ADHD 03/16: Active on unit. social with peers. attending groups. Patient reports feeling good ; denies SI/HI/VH/AH. Patient reports she is looking forward to returning home. denies any side effects from medications. She plans on following up with her outpatient providers and attending NA meetings. 3 day up on 03/17/25. Patient educated on: diagnosis and medication risk/benefits Reason for continued inpatient stay Substantial Risk for: stable for discharge Time Spent With Patient Time: Total time managing care of this patient today _20___ minutes.
[2025-03-16 19:25] VITALS: BP 127/74; PULSE 90; RESP 16; TEMP 36.8; O2SAT 97
[2025-03-17 07:32] VITALS: BP 127/57; PULSE 84; RESP 20; TEMP 36.4; O2SAT 99
[2025-03-17] MEDS: buPROPion HCl XL 150 MG TAB.ER.24H PO (08:08)
--- NOTE | 2025-03-17 09:27 | P.DS_ITS ---
DS: Providers Provider Date of Service: 03/17/25 Date of admission: 03/11/25 15:19 Date of discharge: 03/17/25 Primary care physician: Unknown Physician Admitting clinician: Madai Davies Attending physician on admission: Brady Brewer Attending physician on discharge: Brady Brewer Discharging clinician: Madai Davies DS: Diagnosis Discharge Diagnosis (1) MDD (major depressive disorder), recurrent episode: Status: Acute (2) Stimulant abuse: Status: Acute (3) Marijuana abuse: Status: Acute DS: Medications Discharge Medications Home Medications: Previous Rx's ?Medication ?Instructions ?Recorded bupropion HCl 150 mg 24 hr tablet, 150 mg PO DAILY 7 d ays #7 tabs 03/16/25 extended release escitalopram oxalate 10 mg tablet 10 mg PO BEDTIME 7 d ays #7 tabs 03/16/25 Mental Status Exam Mental Status Exam Narrative: Pt is alert and oriented; behavior is cooperative and calm; dressed in casual attire; mood is described as good ; eye contact appropriate; Speech is normal rate, volume and not pressured; thought process is organized; Thought content is on discharge; denies SI/HI/VH/AH. Data Data Completed and Pending Completed studies during hospitalization [Text1]: 03/12/25 08:20 Sodium 140 Potassium 4.1 Chloride 109 H Carbon Dioxide 24 Anion Gap 11 L BUN 11 Creatinine 0.76 Estim Creat Clear Calc 85.7 Estimated GFR > 60 Random Glucose 99 Estimat Average Glucose 97 Hemoglobin A1c % 5.0 Calcium 9.4 Total Bilirubin 0.4 AST 19 ALT 15 Alkaline Phosphatase 64 Total Protein 7.7 Albumin 4.8 Triglycerides 105 Cholesterol 181 LDL Cholesterol, Calc 116 H HDL Cholesterol 44 DS: Summary Hospital Course Hospital Course: Patient is a 34 year old female with hx of MDD, Stimulant abuse d/o and marijuana use d/o who was brought in via ambulance d/t suicidal ideation secondary to increased depression and abusing Adderall. Per crisis report, patient was brought in via ambulance secondary to taking a large amount of Adderall and THC gummies. Patient reportedly has been taking 1200 mg of Adderall and 400mg THC gummies in 1 day. Patient reports she has been abusing her Adderall and taking her 90 day prescription over 1 week and then crashing into a depression and sleeping for the other 3 weeks and repeats the cycle monthly. Patient also reports taking 400 mg of THC gummies daily. Patient reports suicidal ideation however with no plan or intent stating, I don't care if I get hit by bus . Denies HI/VH. Patient reports since her marriage ended and her grandmother in 2018, patient began abusing Adderall prescription. Patient reports she has been struggling with depression and anxiety for many years without getting treatment. Patient stated, I don't want to do this anymore. I just want to get help . Patient reports auditory hallucinations stating, I feel I hear a noise a lot . She reports poor sleep and appetite secondary to stimulant abuse. Patient reports 60 lb weight loss in 1 year. Patient reports she lost her home as of yesterday due to not paying bills. Patient reports she will be living with her parents in an in-law apartment after treatment. This is patient's 1st inpatient psychiatric hospitalization. Denies history of PHP or respite admissions. Utox positive for amphetamines and marijuana. Denies all other substance use. During admission assessment, pt presents alert and oriented x3. calm and cooperative. Patient reports feeling depressed and anxious ; pt stated, for the past year I've been abusing my Adderall due to lots going on. I was losing my home and my ex- lives it in so I moved in with my parents. I had to surrender my dog because I couldn't bring it to my parents . Patient reports she was not trying to harm herself; pt stated, I wasn't trying to kill myself. I felt like I needed help and didn't know how to get it. I'm cut off from Adderall and I wanted to stop it . Patient reports she has been abusing Adderall for years ; pt stated, no one was questioning why I was sleeping so much . denies SI/HI/VH/AH. Patient reports she would like a referral to an outpatient therapist and would like to be started on an antidepressant. Pt reports hx of taking Lexapro and Wellbutrin; pt could not recall dose or time frame; pt stated, I don't know if they even worked because I was abusing the Adderall . Discussed starting Lexapro; risks/benefits reviewed; pt agreed to trial. Plan: CV 15 minute safety checks obtain collateral Start: Lexapro 10mg PO bedtime referral to outpatient therapist encourage groups discharge planning Active on unit. attending groups. 3 day notice up on 03/17/25. Patient reports feeling good today; pt stated, I'm doing well. I feel more clear headed . denies SI/HI/VH/AH. Pt denies any side effects from starting medications. Continue tx plan. Start Wellbutrin as nonstimulant option for ADHD Active on unit. social with peers. attending groups. Patient reports feeling good ; denies SI/HI/VH/AH. Patient reports she is looking forward to returning home. denies any side effects from medications. She plans on following up with her outpatient providers and attending NA meetings. 3 day up on 03/17/25. Status at Discharge Cognitive/behavioral status at discharge: Patient has insight and demonstrates good judgment in terms of wanting to pursue treatment. Patient has a safety plan that includes presenting to the closest ER or calling 911 if feeling unsafe. Functional status at discharge: independent ambulation Overall status at discharge: patient is back to baseline Time Spent with Patient Time attestation: Total time managing care of this patient today __20__ minutes. Time spent: Less than 30 minutes Discharge Plan Discharge Anticipated Discharge Date/Time: 03/17/25 11:30 Patient Disposition: Home, Self-Care Discharge Diagnosis: MDD, Stimulant abuse, marijuana abuse Referrals: Clare Doty RN [Registered Nurse, Psychiatry] - 03/27/25 2:20 pm Referral Note: 03-16-25 Your follow up appt has been scheduled for 03-27-25 @ 2:20pm Discharge Medications: New escitalopram oxalate 10 mg Tablet 10 mg PO BEDTIME 7 Days Qty: 7 0RF bupropion HCl 150 mg Tablet Extended Release 24 Hr 150 mg PO DAILY 7 Days Qty: 7 0RF Discontinued dextroamphetamine-amphetamine 10 mg tablet 1 tab PO DAILY propranolol 20 mg tablet 20 mg PO TID PRN (Reason: heart rate control) Discharge Orders: Discharge Order (Routine); Ordered 03/17/25 Ordered By: Madai Davies Diet: Regular diet Activity on Discharge: As tolerated Stand Alone Forms: Patient Portal Discharge page, Community Support Print Language: Occitan Care Plan Goals: Maintain mood and safe behaviors Take medications as prescribed Continue to pursue sobriety Practice coping skills Continue with outpatient providers and reach out to them as needed Health Concerns: Mood stability and behaviors Sobriety Plan of Treatment: Follow up with your PCP, psychiatric provider and other outpatient providers regarding above concerns Take medications as prescribed Assessment: Patient has insight and demonstrates good judgment in terms of wanting to pursue treatment. Patient has a safety plan that includes presenting to the closest ER or calling 911 if feeling unsafe. Discharge Date/Time: 03/17/25 11:42
== END 2025-03-17 11:42 | disposition home or self-care (01) | DRG 885 ==
PROVIDERS: Admitting Provider Registered Nurse; Responsible Provider Registered Nurse; Visit Provider Psychiatry & Neurology Psychiatry
DX: F33.9 Major depressive disorder, recurrent, unspecified (principal); F15.10 Other stimulant abuse, uncomplicated; F17.210 Nicotine dependence, cigarettes, uncomplicated; Z71.6 Tobacco abuse counseling; F12.10 Cannabis abuse, uncomplicated; Z79.899 Other long term (current) drug therapy
CPT/HCPCS: 36415; 80053; 80061; 83036

== ENCOUNTER → 2025-03-11 15:19 | Outpatient (BNV) | payer SELFPAY | PROVIDERS: Admitting Provider Registered Nurse; Responsible Provider Registered Nurse; Visit Provider Nurse Practitioner Family | DX: F15.10 Other stimulant abuse, uncomplicated (principal) | CPT/HCPCS: 99221 ==

== ENCOUNTER → 2025-03-11 15:19 | Outpatient (BNV) | payer SELFPAY | PROVIDERS: Admitting Provider Registered Nurse; Responsible Provider Registered Nurse; Visit Provider Registered Nurse | DX: F33.9 Major depressive disorder, recurrent, unspecified (principal); F15.10 Other stimulant abuse, uncomplicated; F12.10 Cannabis abuse, uncomplicated | CPT/HCPCS: 90792; 99231; 99232 ==